=== PATIENT | female | born 1955 | race Caucasian/White ===

== ENCOUNTER 2021-06-23 08:54 | Outpatient (REF) | payer MEDICARE, MEDICAID, SELFPAY ==
--- NOTE | ~2021-06-23 | XR_ITS ---
EXAMINATION: XR KNEE STANDING, BILATERAL XR KNEE RIGHT, TWO VIEWS CLINICAL INFORMATION: Pain in right knee, M25.561. COMPARISON: 2018 TECHNIQUE: Bilateral standing, frontal and patella sunrise view right knee. FINDINGS: BONES: No fracture or dislocation is present. JOINTS: There is partial medial knee replacement prosthesis device, both femoral and tibial component of which is properly positioned maintaining normal alignment. No radiologic evidence of device loosening. Patella properly positioned. SOFT TISSUE: Normal XR/XR knee RT 2V IMPRESSION: Status post partial medial knee replacement. The prosthesis is stable properly positioned..
--- NOTE | ~2021-06-23 | XR_ITS ---
EXAMINATION: XR KNEE STANDING, BILATERAL XR KNEE RIGHT, TWO VIEWS CLINICAL INFORMATION: Pain in right knee, M25.561. COMPARISON: 2018 TECHNIQUE: Bilateral standing, frontal and patella sunrise view right knee. FINDINGS: BONES: No fracture or dislocation is present. JOINTS: There is partial medial knee replacement prosthesis device, both femoral and tibial component of which is properly positioned maintaining normal alignment. No radiologic evidence of device loosening. Patella properly positioned. SOFT TISSUE: Normal XR/XR knee standing BI IMPRESSION: Status post partial medial knee replacement. The prosthesis is stable properly positioned..
== END 2021-06-23 08:55 | disposition home or self-care (01) ==
LOC: HO.HOSX 08:54
PROVIDERS: Visit Provider Physician Assistant
DX: T84.84XA Pain due to internal orthopedic prosthetic devices, implants and grafts, initial encounter (principal); Z96.651 Presence of right artificial knee joint
CPT/HCPCS: 73560; 73565; 99202

== ENCOUNTER → 2021-09-01 13:35 | Outpatient (BNVA) | payer MEDICARE, MEDICAID, SELFPAY | PROVIDERS: PCP Internal Medicine; Visit Provider Orthopaedic Surgery | DX: Z01.818 Encounter for other preprocedural examination (principal); Z96.651 Presence of right artificial knee joint | CPT/HCPCS: 99212 ==

== ENCOUNTER 2021-09-06 06:05 | Inpatient (IN) | payer MEDICARE, MEDICAID, SELFPAY ==
--- NOTE | 2021-08-23 | ECG_ITS ---
Test Reason : preop Blood Pressure : / mmHG Vent. Rate : 078 BPM Atrial Rate : 078 BPM P-R Int : 162 ms QRS Dur : 090 ms QT Int : 368 ms P-R-T Axes : 072 054 086 degrees QTc Int : 419 ms Normal sinus rhythm Nonspecific T wave abnormality Abnormal ECG When compared with ECG of 08-FEB-2018 20:28, Nonspecific T wave abnormality, worse in Anterolateral leads Referred By: Saloni Álvarez Electronically Signed By:JAMIA CHOW MD
[2021-08-23 11:58] VITALS: BP 138/87; PULSE 84; RESP 20; O2SAT 96; BMI 33.5
--- NOTE | 2021-08-23 12:11 | HO.ANESPROP2 ---
Documented by User: Yari Nieves NP 09/05/21 12:26 HPI - Anesthesia Eval Consult details Narrative: 66yo F for Right Knee Total Revision PCP cleared s/p unicompartmental R TKA 2012 with spinal PMFSH Active Problems Active Problems: All Active Problems (Updated 08/23/21 @ 11:53 by Angeles Chilel RN) Status post unicompartmental knee replacement, right (Acute) Past Medical History Medical History (Updated 08/23/21 @ 12:10 by Angeles Chilel RN) COVID-19 vaccine series completed Elevated cholesterol GERD (gastroesophageal reflux disease) Hepatitis C HTN (hypertension) Hypothyroid TIA (transient ischemic attack) Family History Family history of problems with anesthesia: No Surgical History Surgical History (Updated 08/23/21 @ 11:53 by Angeles Chilel RN) H/O colonoscopy History of esophagogastroduodenoscopy (EGD) History of prosthetic unicompartmental arthroplasty of right knee History of total hip arthroplasty History of Problems with Anesthesia: No Social History Social History Are you a primary director medicare sales to a significant other at home: No Do you presently have visiting nurse or other home services: Yes (home health aid) Patient Tobacco Use Status: Former Tobacco user Quit Date: age 55 Tobacco use type: Cigarette Years Smoked: 35 Advance Directives Date on File: 04/18/16 Narrative Narrative: No recent illness No CP/SOB within limits of activity. Activity limited to pain. Meds Allergies Allergy/AdvReac Type Severity Reaction Status Date / Time oxycodone [From PERCOCET] Allergy Intermediate Itching Verified 09/06/21 06:15 aspirin [ASPIRIN] AdvReac Intermediate STOMACH Verified 09/06/21 06:15 IRRITATION Home Medications Medication Instructions Recorded Confirmed Last Taken Type diazepam 2 mg tablet 2 mg PO DAILY 06/23/21 08/23/21 Unknown History hydrochlorothiazide 12.5 mg tablet 12.5 mg PO DAILY 06/23/21 08/23/21 Unknown History levothyroxine 50 mcg tablet 50 mcg PO DAILY 06/23/21 08/23/21 09/06/21 05:00 History losartan 50 mg tablet 50 mg PO DAILY 06/23/21 08/23/21 Unknown History metoprolol succinate 25 mg 25 mg PO DAILY 06/23/21 08/23/21 09/06/21 05:00 History tablet,extended release 24 hr omeprazole 40 mg capsule,delayed 40 mg PO DAILY 06/23/21 08/23/21 09/06/21 05:00 History release pravastatin 80 mg tablet 80 mg PO DAILY 06/23/21 08/23/21 Unknown History trazodone 150 mg tablet 150 mg PO BEDTIME 06/23/21 08/23/21 Unknown History baclofen 5 mg tablet 5 mg PO TID PRN 08/31/21 08/31/21 Unknown History Exam Exam Date and Time: August 23, 2021 1211 Height,Weight and Vital Signs: Height 5 ft 2 in Weight 83.007 kg Last Vital Signs Pulse 84 08/23/21 11:58 Resp 20 08/23/21 11:58 BP 138/87 08/23/21 11:58 Pulse Ox 96 08/23/21 11:58 Pertinent Lab Results Pertinent Lab Results: Lab Results 08/23/21 08/23/21 08/23/21 Range/Units 12:10 13:00 13:00 WBC 3.8 L (4.8-10.8) X10*3/uL RBC 4.52 (4.20-5.50) X10*6/uL Hgb 13.1 (12.0-16.0) g/dl Hct 39.9 (37.0-47.0) % MCV 88.3 (80.0-98.0) fL MCH 29.0 (27.0-33.0) pg MCHC 32.8 (31.0-35.0) g/dl RDW 14.0 (11.0-16.0) % Plt Count 220 (160-400) X10*3/uL MPV 9.2 L (9.4-12.3) fL Immature Gran % (Auto) 0.3 (0.0-0.4) % Neut % (Auto) 43.1 L (45-73) % Lymph % (Auto) 44.6 H (20-40) % [place] % (Auto) 9.7 (2-11) % Eos % (Auto) 1.8 (0-4) % Baso % (Auto) 0.5 (0-2) % Lymph # (Auto) 1.7 (1.2-4.9) X10*3/uL [place] # (Auto) 0.4 (0.1-1.2) X10*3/uL Eos # (Auto) 0.1 (0.0-0.4) X10*3/uL Baso # (Auto) 0.0 (0.0-0.2) X10*3/uL Abs Immat Gran (auto) 0.01 (0.00-0.03) X10*3/uL Absolute Neuts (auto) 1.7 L (2.0-8.3) x10*3/uL Absolute Nucleated RBC 0.000 (0.0-0.012) X10*3/uL Nucleated RBC % (auto) 0.0 (0.0-0.2) /100WBC Sodium 138 (135-145) mmol/L Potassium 4.7 (3.3-5.1) mmol/L Chloride 103 (96-108) mmol/L Carbon Dioxide 29 (22-29) mmol/L Anion Gap 11 L (12-20) BUN 12 (9-16) mg/dL Creatinine 1.05 (0.5-1.4) mg/dL Estim Creat Clear Calc 51.2 Estimated GFR 52 Nasal Screen MRSA (PCR) NEGATIVE (Negative) Nasal S. aureus Screen POSITIVE A (Negative) Nasal MRSA/S.aureus Interp SEE NOTE Blood Type Antibody Screen 08/23/21 Range/Units 13:00 WBC (4.8-10.8) X10*3/uL RBC (4.20-5.50) X10*6/uL Hgb (12.0-16.0) g/dl Hct (37.0-47.0) % MCV (80.0-98.0) fL MCH (27.0-33.0) pg MCHC (31.0-35.0) g/dl RDW (11.0-16.0) % Plt Count (160-400) X10*3/uL MPV (9.4-12.3) fL Immature Gran % (Auto) (0.0-0.4) % Neut % (Auto) (45-73) % Lymph % (Auto) (20-40) % [place] % (Auto) (2-11) % Eos % (Auto) (0-4) % Baso % (Auto) (0-2) % Lymph # (Auto) (1.2-4.9) X10*3/uL [place] # (Auto) (0.1-1.2) X10*3/uL Eos # (Auto) (0.0-0.4) X10*3/uL Baso # (Auto) (0.0-0.2) X10*3/uL Abs Immat Gran (auto) (0.00-0.03) X10*3/uL Absolute Neuts (auto) (2.0-8.3) x10*3/uL Absolute Nucleated RBC (0.0-0.012) X10*3/uL Nucleated RBC % (auto) (0.0-0.2) /100WBC Sodium (135-145) mmol/L Potassium (3.3-5.1) mmol/L Chloride (96-108) mmol/L Carbon Dioxide (22-29) mmol/L Anion Gap (12-20) BUN (9-16) mg/dL Creatinine (0.5-1.4) mg/dL Estim Creat Clear Calc Estimated GFR Nasal Screen MRSA (PCR) (Negative) Nasal S. aureus Screen (Negative) Nasal MRSA/S.aureus Interp Blood Type A Positive Antibody Screen NEGATIVE Narrative Narrative: EKG 08/2021 Vent. Rate : 078 BPM ? ? Atrial Rate : 078 BPM ?? P-R Int : 162 ms? QRS Dur : 090 ms ? ? QT Int : 368 ms ? ? ? P-R-T Axes : 072 054 086 degrees ?? QTc Int : 419 ms ? Normal sinus rhythm Nonspecific T wave abnormality Abnormal ECG When compared with ECG of 08-FEB-2018 20:28, Nonspecific T wave abnormality, worse in Anterolateral leads Airway Mallampati Class: I TM Dist: >3cm Neck ROM: Limited (D/t OA) Partial: Lower Heart: RRR Lungs: CTAB Assessment and Plan Assessment Anesthesia Assessment: Anesthesia Plan Discussed and PAT Visit Final Anesthetic Review Family History of Problems with Anesthesia: No History of Problems with Anesthesia: No Documented by User: Cristobal Helm MD 09/06/21 18:33 HPI - Anesthesia Eval Consult details Narrative: 66yo F for Right Knee Total Revision PCP cleared s/p unicompartmental R TKA 2012 with spinal H/O CVA vs TIA PMFSH Past Medical History Medical History (Updated 08/23/21 @ 12:10 by Angeles Chilel RN) COVID-19 vaccine series completed Elevated cholesterol GERD (gastroesophageal reflux disease) Hepatitis C HTN (hypertension) Hypothyroid TIA (transient ischemic attack) Surgical History Surgical History (Updated 08/23/21 @ 11:53 by Angeles Chilel RN) H/O colonoscopy History of esophagogastroduodenoscopy (EGD) History of prosthetic unicompartmental arthroplasty of right knee History of total hip arthroplasty Social History Social History Are you a primary director medicare sales to a significant other at home: No Do you presently have visiting nurse or other home services: Yes (home health aid) Patient Tobacco Use Status: Former Tobacco user Quit Date: age 55 Tobacco use type: Cigarette Years Smoked: 35 Advance Directives Date on File: 04/18/16 Meds Allergies Allergy/AdvReac Type Severity Reaction Status Date / Time oxycodone [From PERCOCET] Allergy Intermediate Itching Verified 09/06/21 06:15 aspirin [ASPIRIN] AdvReac Intermediate STOMACH Verified 09/06/21 06:15 IRRITATION Home Medications Medication Instructions Recorded Confirmed Last Taken Type diazepam 2 mg tablet 2 mg PO DAILY 06/23/21 08/23/21 Unknown History hydrochlorothiazide 12.5 mg tablet 12.5 mg PO DAILY 06/23/21 08/23/21 Unknown History levothyroxine 50 mcg tablet 50 mcg PO DAILY 06/23/21 08/23/21 09/06/21 05:00 History losartan 50 mg tablet 50 mg PO DAILY 06/23/21 08/23/21 Unknown History metoprolol succinate 25 mg 25 mg PO DAILY 06/23/21 08/23/21 09/06/21 05:00 History tablet,extended release 24 hr omeprazole 40 mg capsule,delayed 40 mg PO DAILY 06/23/21 08/23/21 09/06/21 05:00 History release pravastatin 80 mg tablet 80 mg PO DAILY 06/23/21 08/23/21 Unknown History trazodone 150 mg tablet 150 mg PO BEDTIME 06/23/21 08/23/21 Unknown History baclofen 5 mg tablet 5 mg PO TID PRN 08/31/21 08/31/21 Unknown History Exam Airway Loose/Missing/Broken Teeth: Yes (Chipped teeth ) Assessment and Plan Assessment Anesthesia Assessment: Chart Reviewed Final Anesthetic Review NPO: Yes ASA Class: III Final Preanesthetic Review: Meds/Allgs Chart Reviewed, Consent Obtained/Reviewed and Anes Risks/Benef Reviewed Patient Risk: Intermediate Procedure Risk: Intermediate Anesthetic Plan Anesthetic Plan: Spinal and Regional Block Disposition: Inp. Admit - Standard Bed
[2021-08-23 13:02] LABS: MANUAL DIFF FLAG NO
[2021-08-23 13:25] LABS: Basophils Percent Auto 0.5 % (0-2); Eosinophils Absolute Auto 0.1 X10*3/uL (0.0-0.4); Eosinophils Percent Auto 1.8 % (0-4); Hematocrit 39.9 % (37.0-47.0); Hemoglobin 13.1 g/dl (12.0-16.0); Imm Gran Abs Auto 0.01 X10*3/uL (0.00-0.03); Imm Gran Pct Auto 0.3 % (0.0-0.4); Lymphocytes Absolute Auto 1.7 X10*3/uL (1.2-4.9); Lymphocytes Percent Auto 44.6 % (20-40); Mean Corpuscular HGB Conc 32.8 g/dl (31.0-35.0); Mean Corpuscular Volume 88.3 fL (80.0-98.0); Mean Platelet Volume 9.2 fL (9.4-12.3); Monocytes Absolute Auto 0.4 X10*3/uL (0.1-1.2); Monocytes Percent Auto 9.7 % (2-11); Neutrophils Absolute Auto 1.7 x10*3/uL (2.0-8.3); Neutrophils Percent Auto 43.1 % (45-73); Platelet Count 220 X10*3/uL (160-400); Red Blood Count 4.52 X10*6/uL (4.20-5.50); White Blood Count 3.8 X10*3/uL (4.8-10.8)
[2021-08-23 13:31] LABS: Anion Gap 11 (12-20); Blood Urea Nitrogen 12 mg/dL (9-16); Carbon Dioxide 29 mmol/L (22-29); Chloride 103 mmol/L (96-108); Creatinine Clr Calc Pharmacy 51.2; Estimated Glomerular Filt Rate 52; Potassium 4.7 mmol/L (3.3-5.1); Sodium 138 mmol/L (135-145)
[2021-08-23 14:03] LABS: MRSA Nasal PCR NEGATIVE (Negative); SA Nasal PCR POSITIVE (Negative)
[2021-09-06] VITALS (29 sets, daily range): BP systolic 99–174; BP diastolic 54–96; PULSE 76–96; RESP 16–20; TEMP 36.3–36.8; O2SAT 94–98
--- NOTE | ~2021-09-06 | XR_ITS ---
EXAMINATION: XR KNEE, RIGHT CLINICAL INFORMATION: Right knee replacement COMPARISON: Previous x-ray June 2021 TECHNIQUE: Two views of the right knee. FINDINGS: There is a new 3 component right knee replacement in satisfactory position. No fracture or dislocation is seen there are postoperative changes to the soft tissues. There are soft tissue calcifications or ossifications adjacent to the medial knee joint that are stable. XR/XR knee RT 2V IMPRESSION: Satisfactory appearance of right knee replacement.
[2021-09-06 06:59] LABS: Hematocrit 37.3 % (37.0-47.0); Hemoglobin 12.1 g/dl (12.0-16.0)
[2021-09-06] MEDS: Lactated Ringers 1,000 ML 100 ML IVCONT ×3 (07:06→19:47)
[2021-09-06 07:26] LABS: COVID-19 Test Negative (Negative)
--- NOTE | 2021-09-06 07:34 | PHA.MEDREC ---
Pharmacy Consult ? Medication Reconciliation Pharmacy has reviewed the medication reconciliation.
--- NOTE | 2021-09-06 08:01 | MHC.SHP ---
Pre-Procedural Eval Section A Date of Service: 09/06/21 The patient is an INPATIENT: No Changes since office visit: Yes Patient answered all questions; No Cold of Flu in the past 2 weeks, No New Medical Problems and No Changes in Medication The History & Physical has been completed within 30 days and I have reviewed it.: Yes Section B Chief Complaint: RT TKA Allergies: Allergies Allergy/AdvReac Type Severity Reaction Status Date / Time oxycodone [From PERCOCET] Allergy Intermediate Itching Verified 09/06/21 06:15 aspirin [ASPIRIN] AdvReac Intermediate STOMACH Verified 09/06/21 06:15 IRRITATION Plan I have reviewed the history and physical and performed a pertinent physical examination on my patient. No changes have occurred unless specified.
--- NOTE | 2021-09-06 10:23 | PM.OP ---
Brief Operative Note Date of Service: 09/06/21 Pre-op diagnosis: right knee s/p UKA Post-op diagnosis: same Procedure: Revision right knee arthroplasty Implants: Ramsey triathalon posterior stabilized cemented 05/26/18 Surgeon: Zack Kumar MD Anesthesia: regional and spinal Was an Professor Of Anthropology used for this Procedure?: Yes Professor Of Anthropology: Saloni Álvarez Estimated blood loss (mL): 150 IV fluids (mL): 1,000 Pathology: none sent Condition: stable Disposition: PACU
--- NOTE | 2021-09-06 10:28 | W.PM.OPN ---
Operative Note Operative Note Date of Service: 09/06/21 Narrative: Date of Service: 09/06/21 Pre-op diagnosis: right knee s/p UKA Post-op diagnosis: same Procedure: Revision right knee arthroplasty Implants: Ramsey triathalon posterior stabilized cemented 05/26/18 Surgeon: Zack Kumar MD Anesthesia: regional and spinal Was an Periodicals Library Assistant used for this Procedure?: Yes Periodicals Library Assistant: Saloni Álvarez Estimated blood loss (mL): 150 IV fluids (mL): 1,000 Pathology: none sent Condition: stable Disposition: PACU Procedure in detail: The patient was brought to the operating room and prepped and draped in standard sterile fashion. A time-out was called to identify proper site proper procedure proper surgeon and IV antibiotics were administered. 1 g of IV tranexamic acid was administered. I began by making a midline incision to the retinaculum and performed a medial parapatellar arthrotomy. The patella was translated laterally and the knee was flexed up. There was moderate medial PF wear and lateral femoral condyle wear. The UKA was intact wtihout evidence of loosening. I performed a small medial peel and resected the infrapatellar fat pad. Linh's line was then used to drill my intramedullary femoral guide and my distal femur cut of 12 mm was made in 5 degrees of valgus with the prosthesis in place. I made my lateral femoral cut and my medial femoral cut around the prosthesis. I then removed the cutting guide and used a flexible osteotome to slowly and circumferentially remove the femoral component with minimal bone loss. I then irrigated, removed excess cement and placed my emoral cutting jig in 3 deg or ER and, using the epicondylar axis as my reference measured a 2 femur and made my anterior, posterior and chamfer cuts while protecting the soft tissues. I then made my box but removing the PCL. Once I was satisfied with my cuts I turned my attention to the tibia. I removed the meniscus laterally and , using an external cutting guide, in line with the tibial crest and the third ray, I made my distal tibial cut in 0 deg slope of while protecting the posterior soft tissues at all times. The medial tibial prosthesis was again kept in situ during my initial cut. One I made my lateral cut and a serioes of perimeter cuts under the prosthesis I used a flexible osteotome to remove the prosthesis slowly and carefully. Again there was minimal bone loss. I then made an additional 2 mm clean up cut. I then sized a #3 tibia and once I was satisfied that there was complete tibial coverage I placed my trial and with the trial femur in place took the knee through range of motion. I was satisfied with the extension and flexion as well as the stability at 0, 30 and 90 degrees using a 19 mm insert. I then turned my attention to the patella where I removed 1 cm from the undersurface of the patella and then trialed a 32a patellar button. Again the knee was taken through range of motion I was satisfied with the tracking. I then returned to the femur and drilled my femoral lug holes and prepared the tibia. A femoral bone plug was placed and the knee was irrigated copiously. I then press fit the patella, tibia and femur in standard fashion. I trialed different inserts until I selected a #19 insert. The final insert was placed and a 3 minutes iodine soak with local TXA was performed. A Werewolf cautery wand was used to maintain hemostasis over the capsule and meniscal beds, the gutters and peripatellar soft tissues. The knee was then closed with a running Quill suture, a 3 0 Vicryl and mendel on the skin. Patient was then placed in sterile dressing and brought to recovery room in stable condition there were no known complications.
[2021-09-06] MEDS: HYDROmorphone HCl 0.5 MG/0.5 ML SYRINGE 0.25 MG IVPUSH ×7 (13:45→23:30)
[2021-09-06] MEDS: ceFAZolin Sodium/Dextrose,Iso 2 GM/50 ML PIGGYBACK IV (13:51)
[2021-09-06] MEDS: Acetaminophen 325 MG TABLET 650 MG PO (14:58)
[2021-09-06] MEDS: oxyCODONE HCl ER 10 MG TAB.ER.12H PO (19:42)
[2021-09-06] MEDS: Celecoxib 200 MG CAPSULE PO (19:42)
[2021-09-06] MEDS: Docusate Sodium 100 MG CAPSULE PO (19:42)
[2021-09-06] MEDS: traZODone HCL 50 MG TABLET 150 MG PO (19:42)
[2021-09-07] VITALS (10 sets, daily range): BP systolic 133–160; BP diastolic 61–80; PULSE 86–97; RESP 18–20; TEMP 36.1–36.9; O2SAT 94–96; BMI 33.8
[2021-09-07] MEDS: oxyCODONE HCl Immed Release 5 MG TABLET 10 MG PO (01:32)
[2021-09-07] MEDS: Acetaminophen 325 MG TABLET 650 MG PO (01:33)
[2021-09-07] MEDS: ondansetron HCL 4 MG/2 ML VIAL IVPUSH (04:48)
[2021-09-07] MEDS: Lactated Ringers 1,000 ML 100 ML IVCONT ×2 (04:49→21:00)
[2021-09-07] MEDS: Omeprazole 40 MG CAPSULE.DR PO (05:48)
[2021-09-07] MEDS: Levothyroxine Sodium 50 MCG TABLET PO (05:48)
[2021-09-07 06:19] LABS: MANUAL DIFF FLAG NO
[2021-09-07 06:36] LABS: Basophils Percent Auto 0.2 % (0-2); Eosinophils Percent Auto 0.4 % (0-4); Hematocrit 32.4 % (37.0-47.0); Imm Gran Abs Auto 0.01 X10*3/uL (0.00-0.03); Imm Gran Pct Auto 0.2 % (0.0-0.4); Lymphocytes Absolute Auto 1.1 X10*3/uL (1.2-4.9); Lymphocytes Percent Auto 23.1 % (20-40); Mean Corpuscular Hemoglobin 29.4 pg (27.0-33.0); Mean Corpuscular Volume 86.6 fL (80.0-98.0); Mean Platelet Volume 9.9 fL (9.4-12.3); Monocytes Absolute Auto 0.6 X10*3/uL (0.1-1.2); Monocytes Percent Auto 12.5 % (2-11); Neutrophils Absolute Auto 3.1 x10*3/uL (2.0-8.3); Neutrophils Percent Auto 63.6 % (45-73); Platelet Count 196 X10*3/uL (160-400); Red Blood Count 3.74 X10*6/uL (4.20-5.50); Red Cell Distribution Width 13.6 % (11.0-16.0); White Blood Count 4.8 X10*3/uL (4.8-10.8)
[2021-09-07 06:49] LABS: Anion Gap 7 (12-20); Blood Urea Nitrogen 9 mg/dL (9-16); Calcium 8.9 mg/dL (8.4-10.2); Carbon Dioxide 29 mmol/L (22-29); Chloride 101 mmol/L (96-108); Creatinine Clr Calc Pharmacy 74.1; Estimated Glomerular Filt Rate > 60; Glucose Fasting 152 mg/dL (60-99); Potassium 3.8 mmol/L (3.3-5.1); Sodium 133 mmol/L (135-145)
--- NOTE | 2021-09-07 07:29 | P.PNOP_ITS ---
Subjective Subjective Date of Service: 09/07/21 Interval history: POD1 s/p RTKA. Patient resting in bed comfortably. No overnight events. Reports some dizziness. Pain is managed. No additional complaints. Physical Exam Vital Signs: Vital Signs: Last Vital Signs Temp 98.4 F 09/07/21 07:14 Pulse 92 09/07/21 07:14 Resp 20 09/07/21 07:14 BP 149/73 H 09/07/21 07:14 Pulse Ox 95 09/07/21 07:14 BMI result Body Mass Index 33.8 Const: General: cooperative, healthy appearing and no acute distress Resp: Effort & Inspection: normal respiratory effort and able to speak in complete sentences Cardio: Rate: regular rate Peripheral pulses: Peripheral pulses 2+ through out GI: Palpation (GI): Soft to palpation Skin: Lesions: no lesions Rashes: no rashes Extrem: Other: Right knee Aquacel is clean, dry, and intact. NVI. Procedures Date of Service Date of Service: 09/07/21 Progress Note: A&P Assessment and plan (1) Status post unicompartmental knee replacement, right: Status: Acute Plan Continue pain mgmnt Begin ASA for dvt ppx begin PT for RTKA Dispo planning-Pending PT eval, pain mgmnt Time Spent With Patient Time: Total time spent is greater than 50% in coordination of care (as documented) at patient's floor/unit and/or counseling patient: Quality Stroke Does the patient have a stroke diagnosis?: No VTE Prior VTE?: No VTE Risk Level:: Surgical - very high VTE Device Contraindication: N/A - Device Ordered VTE Drug Contraindication: N/A - Med Ordered
[2021-09-07] MEDS: Celecoxib 200 MG CAPSULE PO ×2 (08:31→20:15)
[2021-09-07] MEDS: diazePAM 2 MG TABLET PO (08:31)
[2021-09-07] MEDS: Aspirin 325 MG TABLET PO ×2 (08:31→20:15)
[2021-09-07] MEDS: Docusate Sodium 100 MG CAPSULE PO ×2 (08:31→20:22)
[2021-09-07] MEDS: Metoprolol Succinate ER 25 MG TAB.ER.24H PO (08:31)
--- NOTE | 2021-09-07 08:42 | HO.PM.IMCN ---
History of Present Illness Data of Consult Service Date: 09/07/21 Requesting physician: Zack Kumar Primary Care Provider: Dennis Bland MD HPI 66-year-old woman with history hypertension, GERD, hyperlipidemia, hypothyroidism admitted by Orthopedic surgery and is status post revision of right knee arthroplasty. At this time she is complaining of a moderate amount of pain and reported that she did not sleep very well last night. She is hemodynamically stable. Labs within acceptable limits. Currently resting in bed with some relief of pain after recently being medicated. Review of Systems Review of Systems: Denies any recent fever chills or decrease in appetite respiratory denies any shortness of breath coverage production cardiovascular Denies chest pain gastrointestinal denies any dysphagia abdominal pain nausea vomiting or diarrhea genitourinary denies any dysuria frequency or hematuria musculoskeletal denies any joint pain or swelling neuropsych see HPI all other systems reviewed are negative FOR[facility]LY [facility] Medical History COVID-19 vaccine series completed Elevated cholesterol GERD (gastroesophageal reflux disease) Hepatitis C HTN (hypertension) Hypothyroid TIA (transient ischemic attack) Pertinent family history: no cardiac disease Surgical History H/O colonoscopy History of esophagogastroduodenoscopy (EGD) History of prosthetic unicompartmental arthroplasty of right knee History of total hip arthroplasty Social History Are you a primary team primary care physician to a significant other at home: No Do you presently have visiting nurse or other home services: Yes (home health aid) Patient Tobacco Use Status: Former Tobacco user Quit Date: age 55 Tobacco use type: Cigarette Years Smoked: 35 Advance Directives Date on File: 04/18/16 Meds Allergies Allergy/AdvReac Type Severity Reaction Status Date / Time oxycodone [From PERCOCET] Allergy Intermediate Itching Verified 09/06/21 06:15 aspirin [ASPIRIN] AdvReac Intermediate STOMACH Verified 09/06/21 06:15 IRRITATION Active Medications: Current Medications Acetaminophen (Acetaminophen 325 Mg Tablet) 650 mg PO Q6H PRN PRN Reason: Pain, Mild (Pain Scale 1-3) Last Admin: 09/07/21 01:33 Dose: 650 mg Documented by: Aspirin (Aspirin 325 Mg Tablet) 325 mg PO BID RENE Last Admin: 09/07/21 08:31 Dose: 325 mg Documented by: Baclofen (Baclofen 10 Mg Tablet) 5 mg PO TID PRN PRN Reason: Headache Celecoxib (Celecoxib 200 Mg Capsule) 200 mg PO BID [facility] Last Admin: 09/07/21 08:31 Dose: 200 mg Documented by: Diazepam (Diazepam 2 Mg Tablet) 2 mg PO DAILY [facility] Last Admin: 09/07/21 08:31 Dose: 2 mg Documented by: Docusate Sodium (Docusate Sodium 100 Mg Capsule) 100 mg PO BID [facility] Last Admin: 09/07/21 08:31 Dose: 100 mg Documented by: Fentanyl (Fentanyl Citrate/Pf 100 Mcg/2 Ml Vial) 25 mcg IVPUSH Q5M PRN; Protocol PRN Reason: Pain, Moderate (Pain Scale 4-6 Hydromorphone HCl (Hydromorphone Hcl 0.5 Mg/0.5 Ml Syringe) 0.25 mg IVPUSH Q4H PRN; Protocol PRN Reason: Pain, Severe (Pain Scale 7-10) Last Admin: 09/06/21 23:30 Dose: 0.25 mg Documented by: Promethazine HCl 6.25 mg/ (Sodium Chloride) 50.25 mls @ 201 mls/hr IV ONCE PRN PRN Reason: Nausea and Vomiting Lactated Ringer's (Lr) 1,000 mls @ 100 mls/hr IVCONT .Q10H [facility] Last Admin: 09/07/21 04:49 Dose: 100 mls/hr Documented by: Cefazolin Sodium/Dextrose (Ancef) 2 gm in 50 mls @ 100 mls/hr IV POSTOP [facility] Last Infusion: 09/06/21 17:40 Dose: Infused Documented by: Levothyroxine Sodium (Levothyroxine Sodium 50 Mcg Tablet) 50 mcg PO DAILY@0600 [facility] Last Admin: 09/07/21 05:48 Dose: 50 mcg Documented by: Metoprolol Succinate (Metoprolol Succinate Er 25 Mg Tab.Er.24h) 25 mg PO DAILY [facility]; Protocol Last Admin: 09/07/21 08:31 Dose: 25 mg Documented by: Omeprazole (Omeprazole 40 Mg Capsule.Dr) 40 mg PO DAILY@0630 [facility] Last Admin: 09/07/21 05:48 Dose: 40 mg Documented by: Ondansetron HCl (Ondansetron Hcl 4 Mg/2 Ml Vial) 4 mg IVPUSH Q8H PRN PRN Reason: Nausea and Vomiting Last Admin: 09/07/21 04:48 Dose: 4 mg Documented by: Oxycodone HCl (Oxycodone Hcl Immed Release 5 Mg Tablet) 10 mg PO Q4H PRN PRN Reason: Pain, Moderate (Pain Scale 4-6 Last Admin: 09/07/21 01:32 Dose: 10 mg Documented by: Oxycodone HCl (Oxycodone Hcl Er 10 Mg Tab.Er.12h) 10 mg PO BID [facility] Last Admin: 09/06/21 19:42 Dose: 10 mg Documented by: Sodium Chloride (0.9 % Sodium Chloride Flush 3 Ml Syringe) 3 ml IVFLUSH QSHIFT [facility] Last Admin: 09/07/21 08:30 Dose: Not Given Documented by: Trazodone HCl (Trazodone Hcl 50 Mg Tablet) 150 mg PO BEDTIME [facility] Last Admin: 09/06/21 19:42 Dose: 150 mg Documented by: Home Medications Medication Instructions Recorded Confirmed Last Taken Type diazepam 2 mg tablet 2 mg PO DAILY 06/23/21 08/23/21 Unknown History hydrochlorothiazide 12.5 mg tablet 12.5 mg PO DAILY 06/23/21 08/23/21 Unknown History levothyroxine 50 mcg tablet 50 mcg PO DAILY 06/23/21 08/23/21 09/06/21 05:00 History losartan 50 mg tablet 50 mg PO DAILY 06/23/21 08/23/21 Unknown History metoprolol succinate 25 mg 25 mg PO DAILY 06/23/21 08/23/21 09/06/21 05:00 History tablet,extended release 24 hr omeprazole 40 mg capsule,delayed 40 mg PO DAILY 06/23/21 08/23/21 09/06/21 05:00 History release pravastatin 80 mg tablet 80 mg PO DAILY 06/23/21 08/23/21 Unknown History trazodone 150 mg tablet 150 mg PO BEDTIME 06/23/21 08/23/21 Unknown History baclofen 5 mg tablet 5 mg PO TID PRN 08/31/21 08/31/21 Unknown History Physical Exam Vital Signs and Narrative: Vital Signs: Last Vital Signs Temp 98.4 F 09/07/21 07:14 Pulse 92 09/07/21 07:50 Resp 20 09/07/21 07:14 BP 149/73 H 09/07/21 07:50 Pulse Ox 95 09/07/21 07:50 BMI result Body Mass Index 33.8 Appearing in no acute distress head is normocephalic atraumatic eyes pupils are PERRLA sclera is anicteric mouth throat mucous membranes are intact and moist neck is supple no lymphadenopathy, no JVD noted lung sounds are clear to auscultation heart regular rate rhythm, clear S1, S2 positive bowel sounds, abdomen is soft, nontender neuro patient is alert x3, no focal deficits Right knee with surgical dressing, surgical incision wound not visualized Results Labs CBC and Chem 7: 09/07/21 05:41 09/07/21 05:41 Labs: Laboratory Results - last 24 hr 09/07/21 09/07/21 05:41 05:41 MCV 86.6 MCH 29.4 MCHC 34.0 RDW 13.6 Plt Count 196 MPV 9.9 Immature Gran % (Auto) 0.2 Neut % (Auto) 63.6 Lymph % (Auto) 23.1 [place] % (Auto) 12.5 H Eos % (Auto) 0.4 Baso % (Auto) 0.2 Lymph # (Auto) 1.1 L [place] # (Auto) 0.6 Eos # (Auto) 0.0 Baso # (Auto) 0.0 Abs Immat Gran (auto) 0.01 Absolute Neuts (auto) 3.1 Absolute Nucleated RBC 0.000 Nucleated RBC % (auto) 0.0 Anion Gap 7 L Estim Creat Clear Calc 74.1 Estimated GFR > 60 Fasting Glucose 152 H Calcium 8.9 Imaging Radiologist's Impressions: Impressions Knee X-Ray 09/06/21 11:26 IMPRESSION: Satisfactory appearance of right knee replacement. Assessment and Plan (1) Status post unicompartmental knee replacement, right: Status: Acute Plan 66-year-old woman admitted by Orthopedic surgery and is status post revision of right total knee arthroplasty Right total knee arthroplasty Management as per surgical team Pain management Hypertension Stable blood pressure Continue metoprolol GERD Continue PPI Hypothyroidism Continue levothyroxine Mental health Continue home medications DVT prophylaxis with full-dose aspirin as per surgical team attending Dr. Vergara Full code
--- NOTE | 2021-09-07 10:18 | MHC.CM.PN ---
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 D/C PLAN: STR W/[facility] FOR BLS TRANSPORT
[2021-09-07] MEDS: HYDROmorphone HCl 0.5 MG/0.5 ML SYRINGE 0.25 MG IVPUSH (13:39)
--- NOTE | 2021-09-07 14:11 | HO.POSTANES ---
Post Anesthesia Evaluation Post Anesthesia Evaluation Vital Signs: Vital Signs Temp Pulse Resp BP Pulse Ox 09/07/21 11:42 97.6 F 87 20 140/78 H 94 09/07/21 11:24 94 09/07/21 11:07 92 149/73 H 95 09/07/21 07:50 92 149/73 H 95 09/07/21 07:14 98.4 F 92 20 149/73 H 95 09/07/21 03:52 97.0 F 97 18 133/74 96 Anesthesia: Spinal and Nerve Block Mental Status: Awake Pain Control: Satisfactory Nausea/Vomiting: None Hydration: Adequate Anesthesia-Related Issues: No Anes. Related Issues
[2021-09-07] MEDS: oxyCODONE HCl ER 10 MG TAB.ER.12H PO (20:15)
[2021-09-07] MEDS: traZODone HCL 50 MG TABLET 150 MG PO (20:15)
[2021-09-07] MEDS: 0.9 % Sodium Chloride Flush 3 ML SYRINGE IVFLUSH (20:18)
[2021-09-08 03:43] VITALS: BP 158/70; PULSE 88; RESP 20; TEMP 36.4; O2SAT 93
[2021-09-08] MEDS: Levothyroxine Sodium 50 MCG TABLET PO (04:50)
[2021-09-08] MEDS: Lactated Ringers 1,000 ML 100 ML IVCONT (04:50)
[2021-09-08] MEDS: Omeprazole 40 MG CAPSULE.DR PO (04:50)
[2021-09-08 06:49] LABS: MANUAL DIFF FLAG NO
[2021-09-08 07:17] LABS: Basophils Percent Auto 0.2 % (0-2); Eosinophils Absolute Auto 0.1 X10*3/uL (0.0-0.4); Eosinophils Percent Auto 1.4 % (0-4); Hematocrit 29.3 % (37.0-47.0); Hemoglobin 9.7 g/dl (12.0-16.0); Imm Gran Abs Auto 0.02 X10*3/uL (0.00-0.03); Imm Gran Pct Auto 0.4 % (0.0-0.4); Lymphocytes Absolute Auto 1.6 X10*3/uL (1.2-4.9); Lymphocytes Percent Auto 31.7 % (20-40); Mean Corpuscular HGB Conc 33.1 g/dl (31.0-35.0); Mean Corpuscular Volume 87.7 fL (80.0-98.0); Mean Platelet Volume 10.3 fL (9.4-12.3); Monocytes Absolute Auto 0.7 X10*3/uL (0.1-1.2); Monocytes Percent Auto 14.6 % (2-11); Neutrophils Absolute Auto 2.6 x10*3/uL (2.0-8.3); Neutrophils Percent Auto 51.7 % (45-73); Platelet Count 196 X10*3/uL (160-400); Red Blood Count 3.34 X10*6/uL (4.20-5.50)
[2021-09-08 07:22] LABS: Anion Gap 5 (12-20); Blood Urea Nitrogen 10 mg/dL (9-16); Calcium 8.9 mg/dL (8.4-10.2); Carbon Dioxide 30 mmol/L (22-29); Chloride 107 mmol/L (96-108); Creatinine Clr Calc Pharmacy 72.1; Estimated Glomerular Filt Rate > 60; Glucose Fasting 128 mg/dL (60-99); Potassium 3.9 mmol/L (3.3-5.1); Sodium 138 mmol/L (135-145)
[2021-09-08 07:58] VITALS: BP 139/68; PULSE 86; RESP 17; TEMP 36; O2SAT 94
[2021-09-08 10:01] VITALS: BP 139/68; PULSE 86; O2SAT 94
[2021-09-08] MEDS: Celecoxib 200 MG CAPSULE PO (10:04)
[2021-09-08] MEDS: diazePAM 2 MG TABLET PO (10:05)
[2021-09-08] MEDS: oxyCODONE HCl ER 10 MG TAB.ER.12H PO (10:05)
[2021-09-08] MEDS: Docusate Sodium 100 MG CAPSULE PO (10:05)
[2021-09-08] MEDS: Metoprolol Succinate ER 25 MG TAB.ER.24H PO (10:05)
[2021-09-08] MEDS: Aspirin 325 MG TABLET PO (10:05)
[2021-09-08] MEDS: 0.9 % Sodium Chloride Flush 3 ML SYRINGE IVFLUSH (10:06)
[2021-09-08 11:00] VITALS: O2SAT 96
[2021-09-08 11:26] VITALS: BP 127/71; PULSE 65; RESP 17; TEMP 36.2; O2SAT 94
--- NOTE | 2021-09-08 12:37 | MHC.CM.PN ---
NURSE TUBING OILER NOTE ELECTRONIC MEDICAL RECORD REVIEWED ALONG WITH CASE DISCUSSED WITH STAFF NURSE AND THE HOSPITALIST AND ORTHOPEDIC SURGEON. MET WITH PATIENT SHE IS AWARE THAT SH WILL BE DISCHARGED TODAY CLINICALLY ACCEPTED AT [facility] AND CONFIRMED INSURANCE AUTHORIZATION RECEIVED, COMPLETED A NEW HEALTH CARE PROXY TODAY NAMING HER HER gent . original and four copies given to her . discharge plan to short term rehab at [facility] and to be transported via [facility] per pt note and staff input. medicare imm 09/07/21
--- NOTE | 2021-09-08 13:51 | P.DS_ITS ---
DS: Providers Provider Date of Service: 09/08/21 Date of admission: 09/06/21 06:05 Primary care physician: Dennis Bland MD Consults: 09/06/21 16:54 Consult to Hospitalist Routine Consulting Provider: Hospitalist Reason For Exam: htn DS: Diagnosis Discharge Diagnosis (1) Status post unicompartmental knee replacement, right: Status: Acute DS: Summary Hospital Course Hospital Course: The patient underwent a successful Revision right total knee arthroplasty, was transferred to PACU and then to the floor to recover. During their stay, their vitals were stable, afebrile at 97.5. Labs were unremarkable, H/H 97./29.3 . POD 1 she was started on ASA for DVT ppx, they also received services twice a day. Prior to discharge, their dressing was change, incision clean dry and intact, new Aquacel dressing applied and the plan was to be discharged to STR Time Spent with Patient Time attestation: Total time spent providing and/or coordinating discharge services: Discharge coordination time: Less than 30 minutes Quality: Safe Use of Opioids Does Pt have an Active Cancer Diagnosis on the Problem List?: No Quality: Stroke Does the patient have a stroke diagnosis?: No Physical Exam Vital Signs: Vital Signs: Last Vital Signs Temp 97.2 F 09/08/21 11:26 Pulse 65 09/08/21 11:26 Resp 17 09/08/21 11:26 BP 127/71 09/08/21 11:26 Pulse Ox 94 09/08/21 11:26 BMI result Body Mass Index 33.8 Const: General: cooperative, healthy appearing and no acute distress Resp: Effort & Inspection: normal respiratory effort and able to speak in complete sentences Cardio: Rate: regular rate Peripheral pulses: Peripheral pulses 2+ throughout GI: Palpation (GI): Soft to palpation Skin: General skin exam: no rashes or lesions noted Extrem: Other: incision clean dry and intact. Gray intact. No erythema or joint effusion. Calf supple nontender. Neurovascularly intact. DS: Data Data Completed and Pending Pending studies at discharge: Pending at discharge 09/06/21 10:10 Surgical [PTH] Routine Labs on day of discharge: Laboratory Results - last 24 hr 09/08/21 09/08/21 06:18 06:18 WBC 5.0 RBC 3.34 L Hgb 9.7 L Hct 29.3 L MCV 87.7 MCH 29.0 MCHC 33.1 RDW 14.0 Plt Count 196 MPV 10.3 Immature Gran % (Auto) 0.4 Neut % (Auto) 51.7 Lymph % (Auto) 31.7 [place] % (Auto) 14.6 H Eos % (Auto) 1.4 Baso % (Auto) 0.2 Lymph # (Auto) 1.6 [place] # (Auto) 0.7 Eos # (Auto) 0.1 Baso # (Auto) 0.0 Abs Immat Gran (auto) 0.02 Absolute Neuts (auto) 2.6 Absolute Nucleated RBC 0.000 Nucleated RBC % (auto) 0.0 Sodium 138 Potassium 3.9 Chloride 107 Carbon Dioxide 30 H Anion Gap 5 L BUN 10 Creatinine 0.75 Estim Creat Clear Calc 72.1 Estimated GFR > 60 Fasting Glucose 128 H Calcium 8.9 Discharge Plan Discharge Patient Disposition: Xfer SNF Discharge Diagnosis: RT TKA Referrals: [facility] term [facility]hab [Other] - 1 Day ([facility] term rehab TRANSPORTATION [facility]IA [facility] ) Saloni Álvarez PA-C [Physician Director Content Marketing] - 2 Weeks (09/22/21 1:00 [facility] Orthopedic Surgeons Saloni Álvarez PA-C) Discharge Medications: New oxycodone 10 mg tablet 10 mg PO Q4H PRN (Reason: Pain, Moderate (Pain Scale 4-6) 7 Days Qty: 42 0RF acetaminophen 325 mg Tablet 650 mg PO Q6H PRN (Reason: Pain, Mild (Pain Scale 1-3)) 30 Days Qty: 240 0RF aspirin 325 mg Tablet 325 mg PO BID 42 Days Qty: 84 0RF docusate sodium 100 mg Capsule 100 mg PO BID 14 Days Qty: 28 0RF Continued baclofen 5 mg Tablet 5 mg PO TID PRN (Reason: Headache) 0RF omeprazole 40 mg capsule,delayed release(DR/EC) 40 mg PO DAILY 0RF hydrochlorothiazide 12.5 mg tablet 12.5 mg PO DAILY 0RF losartan 50 mg tablet 50 mg PO DAILY 0RF trazodone 150 mg tablet 150 mg PO BEDTIME 0RF diazepam 2 mg tablet 2 mg PO DAILY 0RF pravastatin 80 mg tablet 80 mg PO DAILY 0RF metoprolol succinate 25 mg tablet extended release 24 hr 25 mg PO DAILY 0RF levothyroxine 50 mcg tablet 50 mcg PO DAILY 0RF Discharge Orders: Discharge Order (Routine); Ordered 09/08/21 Ordered By: Saloni Álvarez Diet: regular diet Activity on Discharge: Use cane or walker Stand Alone Forms: Patient Portal Discharge page Care Plan Goals: Restore function of joint Health Concerns: none Plan of Treatment: Physical Therapy Pain management DVT prophylaxis Assessment: Physical Therapy for Total knee arthroplasty: WBAT, gait training, ROM 0-12, quad strength * Limit stair climbing * No showering, no tub bath-keep dressing clean, dry and intact * No driving x6 weeks * Continue Aspirin twice a day x 6 weeks * Follow up with [facility] Orthopedics in 2 weeks: * --you will also have your first out patient PT eval on the day of your post op appt-so please plan on being in the office that day for an extended period of time.
[2021-09-08 14:13] LABS: COVID-19 Test Negative (Negative); IDNOW Serial# 16C4AD1C
== END 2021-09-08 16:10 | disposition skilled nursing facility (03) | DRG 468 ==
LOC: HO.SSSA 06:07 → HO.S3 15:22
PROVIDERS: Admitting Provider Physician Assistant; PCP Internal Medicine; Visit Provider Orthopaedic Surgery
PROC: 0SPC0JZ Removal of Synthetic Substitute from Right Knee Joint, Open Approach (ICD-10-PCS; CPT 27487; principal; 2021-09-06 07:30)
DX: T84.89XA Other specified complication of internal orthopedic prosthetic devices, implants and grafts, initial encounter (principal); K21.9 Gastro-esophageal reflux disease without esophagitis; I10 Essential (primary) hypertension; E03.9 Hypothyroidism, unspecified; Z96.643 Presence of artificial hip joint, bilateral; Z20.822 Contact with and (suspected) exposure to COVID-19; Y79.2 Prosthetic and other implants, materials and accessory orthopedic devices associated with adverse incidents; Z86.73 Personal history of transient ischemic attack (TIA), and cerebral infarction without residual deficits; Z87.891 Personal history of nicotine dependence; Z88.5 Allergy status to narcotic agent; Z88.6 Allergy status to analgesic agent; Z79.890 Hormone replacement therapy; Z79.899 Other long term (current) drug therapy
CPT/HCPCS: 36415; 73560; 80048; 80051; 82565; 84520; 85014; 85018; 85025; 86850; 86900; 86901; 87635; 87640; 87641; 88305; 88311; 93005; 97110; 97116; 97162; C1713; C1776; J0690; J1170; J2250; J2405; J2550; J2795

== ENCOUNTER 2021-09-22 07:13 | Outpatient (RCR) | payer MEDICARE, MEDICAID, SELFPAY | END 2021-11-11 11:31 | disposition home or self-care (01) | LOC: HO.PT 07:13 | PROVIDERS: Visit Provider Physician Assistant | DX: Z96.651 Presence of right artificial knee joint (principal) ==

== ENCOUNTER → 2021-09-22 13:00 | Outpatient (BNVA) | payer MEDICARE, MEDICAID, SELFPAY | PROVIDERS: Visit Provider Physician Assistant | DX: Z13.89 Encounter for screening for other disorder (principal) ==

== ENCOUNTER 2021-11-24 07:48 | Outpatient (REF) | payer MEDICARE, MEDICAID, SELFPAY ==
--- NOTE | ~2021-11-24 | XR_ITS ---
EXAMINATION: XR KNEE, RIGHT XR KNEE AP STANDING CLINICAL INFORMATION: Pain. COMPARISON: Radiographs dated 09/06/2021 and 08/23/2021. TECHNIQUE: Lateral and axial views of the right knee were obtained. AP bilateral standing view of the knees was obtained. FINDINGS: Prosthetic components of the right total knee arthroplasty are appropriately aligned without periprosthetic fracture or lucency. No component migration. There is a moderate right knee joint effusion. There is mild asymmetric narrowing of the medial joint space compartment of the left knee. The lateral joint space compartment is well-maintained. No significant varus or valgus configuration is seen bilaterally. XR/XR knee standing BI IMPRESSION: 1. Appropriate alignment of the right total knee arthroplasty, without evidence of complications. 2. A moderate right knee joint effusion is seen. 3. There is mild degenerative change of the medial joint space compartment of the left knee.
--- NOTE | ~2021-11-24 | XR_ITS ---
EXAMINATION: XR KNEE, RIGHT XR KNEE AP STANDING CLINICAL INFORMATION: Pain. COMPARISON: Radiographs dated 09/06/2021 and 08/23/2021. TECHNIQUE: Lateral and axial views of the right knee were obtained. AP bilateral standing view of the knees was obtained. FINDINGS: Prosthetic components of the right total knee arthroplasty are appropriately aligned without periprosthetic fracture or lucency. No component migration. There is a moderate right knee joint effusion. There is mild asymmetric narrowing of the medial joint space compartment of the left knee. The lateral joint space compartment is well-maintained. No significant varus or valgus configuration is seen bilaterally. XR/XR knee RT 2V IMPRESSION: 1. Appropriate alignment of the right total knee arthroplasty, without evidence of complications. 2. A moderate right knee joint effusion is seen. 3. There is mild degenerative change of the medial joint space compartment of the left knee.
== END 2021-11-24 07:49 | disposition home or self-care (01) ==
LOC: HO.HOSX 07:48
PROVIDERS: Visit Provider Orthopaedic Surgery
DX: M25.561 Pain in right knee (principal)
CPT/HCPCS: 73560; 73565

== ENCOUNTER → 2022-01-20 09:55 | Outpatient (BNVA) | payer MEDICARE, MEDICAID, SELFPAY | PROVIDERS: Visit Provider Orthopaedic Surgery | DX: M25.461 Effusion, right knee (principal); Z96.651 Presence of right artificial knee joint | CPT/HCPCS: 99212 ==

== ENCOUNTER 2022-03-14 11:00 | Outpatient (RCR) | payer MEDICARE, MEDICAID, SELFPAY ==
--- NOTE | 2021-11-11 15:58 | MHC.PT.EP ---
[facility] [place] Office [place] Office [place] Office [address] [place] [address] [address] [phone] F: [phone] F: [phone] F: [phone] F: [phone] Physical Therapy Plan of Care Date of Evaluation: Date of Surgery: 09/06/21 Diagnosis: R TKR REVISION 09/06/21 Assessment: Pt IS 66 YO F REFERRED TO PT FROM ORTHO (DR SMITH) S/P L KNEE TKR (REVISION) ON 09/06/21 (ORIGINAL [facility] 2012). WENT TO [facility] THEN HOME PT NOW REFERRED TO OUTPt PT. PRESENTS WITH ANTALGIC GT WITH ST CANE, DECREASED KNEE ROM, DECREASED LE STRENGTH, SWELLING AND PAIN AFFECTING ADLS. Pt LIVES WITH HER IN 2 FLOOR HOUSE. 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 SHOULD BENEFIT FROM PT TO ADDRESS THESE ISSUES Frequency and Duration: The patient will be seen 2/WK X 6 WKS Short Term Goals: 1. INCREASED AWARENESS KNEE CARE 2. INCREASED KNEE ROM L 0-130 3. I HEP WITH DC EX PLAN 4. IMPROVED STAIR NEGOTIATION (ABLE TO GO STEP/OVER STEP) Slipper Maker Goals: 1.DECREASED L KNEE PAIN AT LEAST 50% WITH ADLS 2. DECREASED L KNEE SWELLING NOTED 3. I GT WITHOUT AD Treatment Plan: Modalities to reduce pain, spasms and effusion. Manual therapy to restore motion and function. Therapeutic exercise to improve strength and flexibility. Neuromuscular re-education for posture and balance. Therapeutic activities to return to functional activities of daily living. Electronically signed by: RASHAWN PITT PT Please sign and return to therapist. Thank you for your referral.
--- NOTE | 2022-03-29 14:21 | MHC.PT.DC ---
[facility] [place] Office [place] Office [place] Office [address] Kala Ryan 140 [facility] [phone] F: [phone] F: [phone] F: [phone] F: [phone] Physical Therapy Discharge Report Diagnosis: R TKR REVISION 09/06/21 Date of Surgery: 09/06/21 Date of Evaluation: 11/11/21 Date of Discharge: 03/29/22 Treatments to Date: 16 Cancellations to Date: No Shows to Date: Discharge Status: Improved Function Independent with HEP Discharge Summary: HAS MET MOST PT GOALS, CONTINUES WITH SWELLING (?CYST) POST R KNEE AND C/O R DAVIS PAIN (REPORTS SWELLING AT TIMES ALSO, BUT NOT NOTED TODAY) Electronically signed by: RASHAWN PITT PT Please sign and return to therapist. Thank you for your referral.
== END 2022-03-29 14:22 | disposition home or self-care (01) ==
LOC: HO.PT 11:00
PROVIDERS: Visit Provider Orthopaedic Surgery
DX: Z96.651 Presence of right artificial knee joint (principal)
CPT/HCPCS: 97110; 97140; 97162; 97530; 97535

== ENCOUNTER 2022-08-24 10:51 | Outpatient (REF) | payer MEDICARE, MEDICAID, SELFPAY ==
--- NOTE | ~2022-08-24 | XR_ITS ---
EXAMINATION: Knee x-ray CLINICAL INFORMATION: Pain. Knee replacement. COMPARISON: Previous x-ray most recent November 2021 TECHNIQUE: Standing AP view of both knees and lateral and sunrise view of the right knee FINDINGS: Right: There is a 3 component right knee replacement in satisfactory position. No fracture, dislocation or x-ray evidence of loosening is seen. There is soft tissue calcification and ossification adjacent to the medial knee joint similar to most recent exam likely related to old trauma. There is a small joint effusion. Standing AP view of the left knee demonstrates medial degenerative meniscal calcification and joint space narrowing. XR/XR knee RT 2V IMPRESSION: Satisfactory appearance of right knee replacement.
--- NOTE | ~2022-08-24 | XR_ITS ---
EXAMINATION: Knee x-ray CLINICAL INFORMATION: Pain. Knee replacement. COMPARISON: Previous x-ray most recent November 2021 TECHNIQUE: Standing AP view of both knees and lateral and sunrise view of the right knee FINDINGS: Right: There is a 3 component right knee replacement in satisfactory position. No fracture, dislocation or x-ray evidence of loosening is seen. There is soft tissue calcification and ossification adjacent to the medial knee joint similar to most recent exam likely related to old trauma. There is a small joint effusion. Standing AP view of the left knee demonstrates medial degenerative meniscal calcification and joint space narrowing. XR/XR knee standing BI IMPRESSION: Satisfactory appearance of right knee replacement.
== END 2022-08-24 10:52 | disposition home or self-care (01) ==
LOC: HO.HOSX 10:51
PROVIDERS: Visit Provider Orthopaedic Surgery
DX: Z96.651 Presence of right artificial knee joint (principal)
CPT/HCPCS: 73560; 73565; 99212

== ENCOUNTER → 2022-10-05 11:52 | Outpatient (BNVA) | payer MEDICARE, MEDICAID, SELFPAY | PROVIDERS: Visit Provider Orthopaedic Surgery | DX: Z96.651 Presence of right artificial knee joint (principal) | CPT/HCPCS: 99212 ==

== ENCOUNTER 2022-10-20 11:00 | Outpatient (RCR) | payer MEDICARE, MEDICAID, SELFPAY ==
--- NOTE | 2022-09-22 14:24 | MHC.PT.EP ---
[facility] [place] Office [place] Office [place] Office [address] Kala Ryan [address] [phone] F: [phone] F: [phone] F: [phone] F: [phone] Physical Therapy Plan of Care Date of Evaluation: Date of Surgery: 09/06/21 Diagnosis: POST REVISION OF Rt TKA 09/06/21-> quad strengthening & maintaining full leg extension Assessment: 67 YO FEMALE REF TO PT W DX OF FALLING, S/P REVISION TKR ON 09/06/21, AND STRENGTH DEFICITS AND SORENESS IN Rt LE. 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 OBJECTIVE FINDINGS: LIMITED AROM Rt KNEE, TIGHT PSOAS MM HANNAH AND DECR ANKLE DF HANNAH; DECR STRENGTH IN PROX / LUMBOPELVIC AND Rt LE, PAIN IN RIGHT KNEE, (+) SCOLIOSIS W H/O HANNAH RAZA, AND DECR COMPLIANCY W HEP FROM PRIOR PT. FUNCTIONALLY, SHE HAS COMPENSATORY GAIT, MODIFIED STAIR MGMT, DECR STANDING, SLEEPING, AND DECR VIKY TO ADLs REQ Rt KNEE FLEX. Pt MAY BENEFIT FROM RE-INTRO OF HEP, PAIN MGMT, AND DEV SELF-SX TECHN FOR MAXIMIZING FUNCTIONAL INDEPENDENCE. Frequency and Duration: The patient will be seen 2 X wk X 6 wks Short Term Goals: *Pt'S RIGHT KNEE PAIN DECR TO 2-3/10 *Pt INCREASE Rt KNEE ROM -> 0* EXTEN AND PROGRESSIVELY TO 120* FLEX *INCR FLEXIB IN PSOAS/ CALF MM TO IMPROVE EFFICIENCY OF GAIT ON LEVEL AND STAIRS Half-Way Goals: Pt INDEP W HEP PROGRESSION AND SELF-SX MGMT STRATEGIES Pt RESUME REG ADLs EVIDENT W IMPROVED LEFI SCORE (AT EVAL ) Pt INCR Rt LE STRENGTH BY 1 GRADE Treatment Plan: Modalities to reduce pain, spasms and effusion. Manual therapy to restore motion and function. Therapeutic exercise to improve strength and flexibility. Neuromuscular re-education for posture and balance. Therapeutic activities to return to functional activities of daily living. Electronically signed by: LOTUS DIAZ,PT Please sign and return to therapist. Thank you for your referral.
--- NOTE | 2022-10-20 12:55 | MHC.PT.DC ---
[facility] [place] Office [place] Office [place] Office [address] Kala Ryan [address] [phone] F: [phone] F: [phone] F: [phone] F: [phone] Physical Therapy Discharge Report Diagnosis: POST REVISION OF Rt TKA 09/06/21-> quad strengthening & maintaining full leg extension Date of Surgery: 09/06/21 Date of Evaluation: 09/22/22 Date of Discharge: 10/20/22 Treatments to Date: 7 Cancellations to Date: 0 No Shows to Date: 0 Discharge Status: Achieved Goals Improved Function Independent with HEP Discharge Summary: Pt HAS PROGRESSED NICELY IN PT- SHE HAS MET HER PT GOALS AT THIS TIME AND IS D/C'D THIS DATE - HER LEFI SCORE AT EVAL WAS 11/80 AND TODAY AT D/C 46 /80. HER AROM IN Rt KNEE IS 0* TO 126* AND HER STRENGTH IS MUCH IMPROVED - SHE DEMON DECENT, EFFICIENT GAIT MECHANICS ON LEVEL GROUND AND STAIRS. WE HAVE EMPHASIZED THE IMPORTANCE OF HEP COMPLIANCY UPON D/C FROM PT. Electronically signed by: LOTUS DIAZ,PT Please sign and return to therapist. Thank you for your referral.
== END 2022-10-20 12:55 | disposition home or self-care (01) ==
LOC: HO.PT 11:00
PROVIDERS: Visit Provider Orthopaedic Surgery
DX: Z96.651 Presence of right artificial knee joint (principal)
CPT/HCPCS: 97110; 97161

== ENCOUNTER 2023-03-21 09:17 | Outpatient (AMB) | payer MEDICARE, MEDICAID, SELFPAY ==
--- NOTE | 2023-03-21 09:22 | A.OFFVIS_ITS ---
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 Accompanied by: Self / Same As Patient Allergies oxycodone [From PERCOCET] Allergy (Intermediate, Verified 03/21/23 09:29) Itching aspirin [ASPIRIN] Adverse Reaction (Intermediate, Verified 03/21/23 09:29) STOMACH IRRITATION Medication List - Last Reconciled 03/21/23 by Larry Mccain MD celecoxib 200 mg PO BID diazepam 2 mg PO DAILY hydrochlorothiazide 12.5 mg PO DAILY levothyroxine 50 mcg PO DAILY losartan 50 mg PO DAILY metoprolol succinate ER 25 mg PO DAILY omeprazole 40 mg PO DAILY pravastatin 80 mg PO DAILY trazodone 150 mg PO BEDTIME HPI HPI Comments History of Present Illness Details Leann has been referred for evaluation of palpitations. She states she has been seen at [facility] many years ago but not recently. She saw Dr. Kay. She carries a diagnosis of SVT but not clear if it is a definitive diagnosis or suspicion. Patient states she gets frequent palpitations, sometimes almost daily. They last for several minutes and then resolved spontaneously. With activity, she gets short of breath. She also gets chest pains, again somewhat randomly and can happen with or without exertion. No documented coronary disease or myocardial infarction. Many comorbidities. [facility] Medical History COVID-19 vaccine series completed Elevated cholesterol GERD (gastroesophageal reflux disease) Hepatitis C HTN (hypertension) Hypothyroid TIA (transient ischemic attack) Surgical History History of total right knee replacement (09/06/21) History of knee replacement procedure of right knee (11/19/12) History of total left hip replacement (04/18/17) History of total right hip replacement (01/29/18) History of esophagogastroduodenoscopy (EGD) H/O colonoscopy History of prosthetic unicompartmental arthroplasty of right knee Family History (Updated 03/21/23 @ 09:31 by Mayi Chaudhry) Father Heart problem Social History Are you a primary patient care director to a significant other at home: No Do you presently have visiting nurse or other home services: Yes (home health aid) Patient Tobacco Use Status: Former Tobacco user Quit Date: age 55 Tobacco use type: Cigarette Years Smoked: 35 Advance Directives Date on File: 04/18/16 service: No Current occupational status: retired Review of Systems Const Denies chills, Denies daytime sleepiness, Denies fatigue, Denies fever(s), Denies frequent falls, Denies night sweats, Denies snoring, Denies weakness, Denies weight gain and Denies weight loss Eyes Denies loss of vision ENT Denies dizziness and Denies hearing loss Card Denies chest pain, Denies chest pain with activity, Denies syncope, Denies rapid heart rate, Denies claudication, Denies leg edema, Denies palpitations and Denies orthopnea Resp Denies cough, Denies excessive phlegm production, Denies snoring and Denies wheezing GI Denies abdominal pain, Denies hematochezia, Denies change in bowel habits, Denies change in stool character, Denies heartburn, Denies nausea and Denies vomiting Denies hematuria, Denies urinary frequency and Denies dysuria Musc Denies arthralgias, Denies muscle weakness, Denies numbness and Denies tingling Skin/Breast Denies nail changes and Denies rash Neuro Denies Abnormal speech present, Denies dizziness, Denies syncope, Denies frequent falls, Denies loss of vision, Denies memory loss, Denies numbness, Denies tingling and Denies weakness Psych Denies depression and Denies memory loss Endo Denies fatigue and Denies palpitations Aller/Immun Denies wheezing Physical Exam Vital Signs: Last Vital Signs Pulse 91 03/21/23 09:31 BP 130/76 03/21/23 09:31 BMI result Body Mass Index 33.5 Const General: comfortable and no acute distress Orientation/consciousness: patient oriented x3 HEENT Other: Unremarkable Head: Yes normal to inspection Neck Neck: Yes normal visual inspection Chest Chest palpation & inspection: normal inspection of the chest Resp Auscultation: clear to auscultation bilaterally Cardio Palpation: normal PMI Heart sounds: S1 normal heart sound present, S2 normal heart sound present, no gallops, no murmurs and no rubs GI Palpation (GI): Soft to palpation Back/Spine/Pelvis Other: unremarkable Skin General skin exam: no rashes or lesions noted Neuro General: patient oriented x3 Speech: No Abnormal speech present Extrem General: Yes normal to inspection Psych Mental Status: mental status grossly normal Office Procedures EKG Details: EKG with sinus rhythm at 91/Min T inversions in anterior leads and otherwise nonspecific ST-T changes; [place] [id number], Complete Assessment & Plan Assessment & Plan (1) Heart palpitations: Code(s): R00.2 - Palpitations (2) Precordial chest pain: Code(s): R07.2 - Precordial pain (3) Shortness of breath: Code(s): R06.02 - Shortness of breath (4) Abnormal EKG: Code(s): R94.31 - Abnormal electrocardiogram [ECG] [EKG] Plan Multiple comorbidities, palpitations, chest pain, shortness of breath, abnormal appearing EKG. Will do a comprehensive workup including echocardiogram, stress test and Holter. Will contact [facility] for records. Follow-up after the above. Orders: Orders ECG 7 day holter monitor Today R00.2 - Palpitations CA echo transthoracic complete Today I25.10 - Atherosclerotic heart disease of [place] coronary artery without angina pectoris, R00.2 - Palpitations NM cardiolite stress test Today R00.2 - Palpitations, R07.2 - Precordial pain CA stress test Today R00.2 - Palpitations, R07.2 - Precordial pain Medications: Changed From celecoxib 200 mg PO BID 60 caps 1RF To celecoxib 200 mg PO BID Coding Level of Care Code New Pt Level 4 (51198) Diagnoses Heart palpitations R00.2 Precordial chest pain R07.2 Shortness of breath R06.02 Abnormal EKG R94.31 CPT Codes EKG - CPT: 91582-[id number], Complete ([id number])
[2023-03-21 09:31] VITALS: BP 130/76; PULSE 91; BMI 33.5
== END 2023-03-21 09:54 | disposition home or self-care (01) ==
PROVIDERS: Visit Provider Internal Medicine
DX: R00.2 Palpitations (principal); R07.2 Precordial pain; R06.02 Shortness of breath; R94.31 Abnormal electrocardiogram [ECG] [EKG]
CPT/HCPCS: 93010; 99204

== ENCOUNTER → 2023-03-21 09:17 | Outpatient (BNVA) | payer MEDICARE, MEDICAID, SELFPAY | PROVIDERS: Visit Provider Internal Medicine | DX: R00.2 Palpitations (principal); R07.2 Precordial pain; R06.02 Shortness of breath; R94.31 Abnormal electrocardiogram [ECG] [EKG] | CPT/HCPCS: 93005; 99202 ==

== ENCOUNTER → 2023-05-17 08:45 | Outpatient (REF) | payer MEDICARE, MEDICAID, SELFPAY ==
--- NOTE | ~2023-05-17 | NM_ITS ---
Lexiscan Myocardial perfusion study Indication: Chest pain, shortness of breath, assess for coronary disease and ischemia Technique: The patient was brought in for a Lexiscan perfusion study on 05/17/2023 and was injected 0.4 mg of Lexiscan intravenously. Within a minute of this injection 30 mCi of sestamibi was given intravenously. Images were obtained using the SPECT gamma camera interlaced with the gating device. Images were obtained in supine position. Resting perfusion study was performed on 05/23/2023. Patient was administered 30 mCi of sestamibi intravenously at rest. Images were then obtained in supine position. Images were processed with the software and compared side to side in short axis, horizontal long axis and vertical long axis views. Total DLP 116mGy-cm. Findings: Raw acquisition reviewed. The stress perfusion study showed mildly diminished tracer uptake in the distal part of lateral wall. With CT attenuation correction, there is improvement suggestive of soft tissue attenuation artifact. The gated study shows normal LV systolic function with calculated LVEF of 62%. LV cavity is normal in size. The gated study shows normal wall thickening and contraction of segments. Resting study shows no significant perfusion defects. Gating at rest reveals normal wall motion with ejection fraction at 50%-visually higher. The findings are consistent with reversible distal lateral defect suspected to be from soft tissue attenuation artifact. NM/NM cardiolite stress test Impression: 1. Myocardial perfusion imaging study shows no clear evidence of any ischemia or infarction. Probably normal myocardial perfusion. 2. Gated LVEF is 62% during stress. 3. Transient ischemic dilatation not present. EKG component of the test reported separately.
--- NOTE | 2023-05-17 08:50 | CA_ITS ---
Transthoracic Echocardiogram Patient (Last, First, Middle): Leann Meeks, Gender: Female Date of : 1955 Age: 68 Procedure Date: 05/17/2023 Procedure Type: Transthoracic Echocardiogram Location: OP Height: 154.94 cm Weight: 82.56 kg BSA: 1.81 m2 Heart Rate: bpm BP: 122 / 78 mmHg Building Architectural Designer: SIERRA Referring MD: Larry Mccain MD Personal Security Specialist: Tariq Hoang MD Symptoms: I25.10 - Atherosclerotic heart disease of [place] coronary artery without... Study Quality: Adequate w contrast ECG Rhythm: Sinus Conclusions: - 1. Technically limited study despite use of contrast agent 2. Normal LV ejection fraction of 65-70% with impaired relaxation filling pattern 3. Normal cardiac valvular Doppler Findings Procedure Information Contrast agent, definity, is being given per protocol without apparent complications. Left Ventricle Normal left ventricular size, thickness, and systolic function. The visually estimated ejection fraction is between 65-70%. Spectral Doppler is indicative of an impaired relaxation filling pattern. E/E prime ratio is between 8 and 15 consistent with indeterminate filling pressures. Right Ventricle Normal right ventricular cavity size. Atria The left atrium is likely dilated. Interatrial shunt cannot be excluded. The right atrium is normal in size. Aortic Valve The aortic valve was not well visualized. There is no aortic valve stenosis. There is no aortic valve regurgitation. Mitral Valve Likely normal mitral valve structure and function. There is trace mitral valve regurgitation. There is no mitral valve stenosis. Pulmonic Valve The pulmonic valve was not well visualized. Tricuspid Valve Likely normal tricuspid valve structure and function. Tricuspid regurgitation envelope is inadequate for calculation of right ventricular systolic pressure. Normal right atrial pressure. Great Vessels All visible segments of the aorta are normal in size. The pulmonary artery was not well visualized. Venous The inferior vena cava is normal in size and collapses greater than 50% with inspiration. Pericardium/Pleural The pericardium was not well visualized. Prior Study Comparison No prior study available for comparison. Measurements 2D Linear Measurements IVSd: 0.97 0.6-0.9/0.6-1.0 cm LVIDd: 3.19 3.9-5.3/4.2-5.9 cm LVIDd Index: 1.76 2.4-3.2/2.2-3.1 cm/m2 LVIDs: 2.12 2.0-3.6 cm LVPWd: 0.82 0.7-1.1 cm LA Diam: 2.70 2.7-3.8/3.0-4.0 cm LAIDs Index: 1.49 1.5-2.3 cm/m2 LV Mass: 94.53 67-162/88-224 g LV Mass Index: 52.23 43-95/49-115 g/m2 LVOT Diam: 2.00 3.0+(-)1.3 cm 2D Systolic Function EF 4C: 70.80 >55% EF 2C: 68.50 >55% EF BiP: 68.90 >55% Mitral Valve MV Pk E: 0.77 MV PK A: 0.80 MV Decel Time: 256.00 E/A: 1.00 E'Lateral: 5.87 E'Medial: 4.57 E/E' Med: 16.90 E/E' Lat: 13.10 PHT: 75.00 MVA PHT: 2.93 Decel Vance: 3.02 Aortic Valve AoV Pk Gareth: 1.36 AoV Mn Gareth: 0.93 AoV VTI: 0.33 AoV Pk Grad: 7.00 Aov Mn Grad: 4.00 JAYLYN Cont.VTI: 2.41 LVOT LVOT Pk Gareth: 1.01 LVOT Mn Gareth: 0.74 LVOT VTI: 0.25 LVOT Pk Grad: 4.00 LVOT Mn Grad: 2.00 LVOT Diam: 2.00 LVOT Area: 3.14 Diastolic Function MV Pk E: 0.77 MV Pk A: 0.80 E/A: 1.00 E'Medial: 4.57 E/E' Med: 16.90 E' Laterial: 5.87 E/E' Lat: 13.10 Right Ventricle TAPSE (mm): 22.60 TVS' Gareth: 9.57 Tricuspid Valve RA Press: 3.00 Great Vessels Aorta Sinus of Valsalva: 3.27 2.0-3.[address] [place]: 2.78 1.7-3.4 cm Ao Asc: 3.20 2.1-3.4 cm Updated in Other Vendor System with Status of Final Tariq Hoang MD electronically signed on 05/17/2023 3:05:31 PM with status of Final
--- NOTE | 2023-05-17 08:50 | CA_ITS ---
Acquisition Time: 2023-05-17 10:02:52 Total Exercise Time: 00:00:06 Test Indications: Chest pain, SOB Medications: See H Protocol: KIMBERLEY Max HR: 093 BPM 62% of Pred: 150 BPM Max BP: 122/066 mmHG Max Work Load: 1.0 METS Exercise stress test exericse 6 sec of Kimberley protocol and stopped due to safety of patient as she could not keep up with it. Test changed to pharmaoclogical stress test with l;exiscan. Pharmacoloigcal stress test with Lexiscan injeciton while sitting and kicking her legs, without anginal symptoms, without arrhythmias, with normotensive response to exercise, with nondiagnoisitic EKGs. Aminophylline 75mg IVP given to reverse Lexiscan. Nuclear images pending. Test reviewed with Dr. Jara. Referred By: Larry Mccain Overread By: Valerie Hale
--- NOTE | 2023-05-17 08:50 | HM_ITS ---
* Total monitoring time 5 days. * Underlying rhythm is sinus with an average rate of 73/Min. * Rare supraventricular ectopy with very brief runs. * Rare ventricular ectopy. * No significant pauses or AV blocks. * Symptoms in patient diary including shortness of breath, pain, rapid heartbeat associated with sinus rhythm. MTDD
== END ==
LOC: HO.CARD 08:45
PROVIDERS: PCP Internal Medicine; Visit Provider Internal Medicine
DX: R07.2 Precordial pain (principal); R00.2 Palpitations
CPT/HCPCS: 78452; 93017; 93242; 93306; A9500; J0280; J2785; Q9957

== ENCOUNTER → 2023-05-17 08:50 | Outpatient (BNV) | payer MEDICARE, MEDICAID, SELFPAY | PROVIDERS: PCP Internal Medicine; Visit Provider Nurse Practitioner | DX: R07.2 Precordial pain (principal); R06.02 Shortness of breath; I47.10 Supraventricular tachycardia, unspecified | CPT/HCPCS: 78452; 93016; 93018; 93244; 93306 ==

== ENCOUNTER 2023-06-14 08:34 | Outpatient (AMB) | payer MEDICARE, MEDICAID, SELFPAY ==
--- NOTE | 2023-06-14 08:37 | MHC.OFFVIS ---
Intake Intake Visit Reasons: OV - RT TKA 09/06/21 pain Intake Note: Leann is a 68 year old female who presents today for a follow up of her right knee due to some increased pain. Right TKA 11/19/2012 with Revision on 09/06/21. Patient reports that she has had an increased pain for about 2 years now, she took a fall on the right knee due to uneven pavement. Allergies oxycodone [From PERCOCET] Allergy (Intermediate, Verified 06/14/23 08:37) Itching aspirin [ASPIRIN] Adverse Reaction (Intermediate, Verified 06/14/23 08:37) STOMACH IRRITATION HPI OV - RT TKA 09/06/21 pain HPI Details Leann is a 67 year old woman who returns to discuss her right knee pain. She is S/P right rTKA, DOS: 09/06/21 She complains of increased pain in the medial aspect of her right knee, which worsened after a fall on pavement, but she says her pain has been present for ~2 years now, since her surgery. She has completed several courses of PT and performs at-home exercises, without much improvement. She is able to function and the pain is tolerable. The swelling does bother her with stairs. Most of her pain is medial. 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/18/17) History of total right hip replacement (01/29/18) History of esophagogastroduodenoscopy (EGD) H/O colonoscopy History of prosthetic unicompartmental arthroplasty of right knee Family History Father Heart problem Social History Are you a primary animal caretaker to a significant other at home: No Do you presently have visiting nurse or other home services: Yes (home health aid) Patient Tobacco Use Status: Former Tobacco user Quit Date: age 55 Tobacco use type: Cigarette Years Smoked: 35 Advance Directives Date on File: 04/18/16 service: No Current occupational status: retired Review of Systems Const All systems reviewed & are unremarkable except as noted in HPI and below Physical Exam Const General: no acute distress, alert and awake Orientation/consciousness: patient oriented x3 HEENT Head: Yes normocephalic and Yes atraumatic Mouth: moist mucous membranes Eyes General: appearance normal, both eyes and all related structures EOM: EOMs intact bilaterally Chest Other: no audible wheezing. Resp Other: No audible wheezing Effort & Inspection: normal respiratory effort and able to speak in complete sentences Cardio Other: Radial pulse palpable with no rythmic abnormalities Jugular venous distension: no JVD Back/Spine/Pelvis Cervical Spine: normal cervical lordosis Skin General skin exam: turgor normal Rashes: no rashes Neuro General: patient oriented x3 Extrem Other: Visual inspection: inc c/d/i 0-130 mild effusion stable arc of motion. Stable to v/v stress TTP medial femoral condyle Psych Appearance: grossly normal Mental Status: mental status grossly normal Speech and movement: Normal speech and movement present Affect: normal affect Attitude: cooperative Results Reviewed Results Reviewed: I personally reviewed relevant radiographs. Unchanged appearance of revision r TKA with loose bodies medial femoral condyle but stable compared to prior Assessment & Plan Assessment & Plan (1) Status post revision of total replacement of right knee: Code(s): Z96.651 - Presence of right artificial knee joint Plan: Stable s/p revision right TKA. No mechanical symptoms. Loose bodies adjacent to MFC. No intervention warranted at this time. May consider referral to PM if pain worsens. Discussed with her. Celebrex written. Plan Prepared for Zack Kumar MD by Thiago Lucio, medical insurance claims specialist, on 06/14/23 at 8:45 AM, EST. Orders: Orders XR knee RT 2V Today M25.569 - Pain in unspecified knee XR knee standing BI Today M25.569 - Pain in unspecified knee Medications: New celecoxib 200 mg PO BID 60 caps 0RF Coding Level of Care Code Est Pt Level 4 (98432) Diagnoses Status post revision of total replacement of right knee Z96.651
== END 2023-06-14 09:40 | disposition home or self-care (01) ==
PROVIDERS: PCP Internal Medicine; Visit Provider Orthopaedic Surgery
DX: M25.561 Pain in right knee (principal); Z96.651 Presence of right artificial knee joint
CPT/HCPCS: 99214

== ENCOUNTER 2023-06-14 08:44 | Outpatient (REF) | payer MEDICARE, MEDICAID, SELFPAY ==
--- NOTE | ~2023-06-14 | XR_ITS ---
EXAMINATION: XR KNEE, RIGHT XR KNEE AP STANDING CLINICAL INFORMATION: Pain. COMPARISON: Prior radiographs, most recently 08/24/2022. TECHNIQUE: Lateral and axial views of the right knee were obtained. AP bilateral standing view of the knees was obtained. FINDINGS: Prosthetic components of the right total knee arthroplasty are appropriately aligned, without periprosthetic fracture or abnormal lucency. No component migration. No joint effusion. There are Kayli-Stieda calcifications adjacent to the right medial femoral condyle, suggesting a chronic MCL injury. There are atherosclerotic calcifications. The lateral and medial joint space compartments of the left knee are well-maintained. There is mild chondrocalcinosis of the medial joint space compartment. No varus or valgus configuration is seen bilaterally. XR/XR knee RT 2V IMPRESSION: 1. Appropriate alignment of the right total knee arthroplasty without evidence of complications. 2. There are Kayli-Stieda calcifications adjacent to the right medial femoral condyle, suggesting a chronic MCL injury. 3. There is chondrocalcinosis of the left knee, which can be associated with CPPD, gout or hypercalcemia.
--- NOTE | ~2023-06-14 | XR_ITS ---
EXAMINATION: XR KNEE, RIGHT XR KNEE AP STANDING CLINICAL INFORMATION: Pain. COMPARISON: Prior radiographs, most recently 08/24/2022. TECHNIQUE: Lateral and axial views of the right knee were obtained. AP bilateral standing view of the knees was obtained. FINDINGS: Prosthetic components of the right total knee arthroplasty are appropriately aligned, without periprosthetic fracture or abnormal lucency. No component migration. No joint effusion. There are Kayli-Stieda calcifications adjacent to the right medial femoral condyle, suggesting a chronic MCL injury. There are atherosclerotic calcifications. The lateral and medial joint space compartments of the left knee are well-maintained. There is mild chondrocalcinosis of the medial joint space compartment. No varus or valgus configuration is seen bilaterally. XR/XR knee standing BI IMPRESSION: 1. Appropriate alignment of the right total knee arthroplasty without evidence of complications. 2. There are Kayli-Stieda calcifications adjacent to the right medial femoral condyle, suggesting a chronic MCL injury. 3. There is chondrocalcinosis of the left knee, which can be associated with CPPD, gout or hypercalcemia.
== END 2023-06-14 08:45 | disposition home or self-care (01) ==
LOC: HO.HOSX 08:44
PROVIDERS: Visit Provider Orthopaedic Surgery
DX: R00.2 Palpitations (principal); I47.10 Supraventricular tachycardia, unspecified; R94.31 Abnormal electrocardiogram [ECG] [EKG]; Z96.651 Presence of right artificial knee joint
CPT/HCPCS: 73560; 73565; 99212

== ENCOUNTER 2023-06-14 12:51 | Outpatient (AMB) | payer MEDICARE, MEDICAID, SELFPAY ==
--- NOTE | 2023-06-14 13:09 | A.OFFVIS_ITS ---
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 Allergies oxycodone [From PERCOCET] Allergy (Intermediate, Verified 06/14/23 08:37) Itching aspirin [ASPIRIN] Adverse Reaction (Intermediate, Verified 06/14/23 08:37) STOMACH IRRITATION Medication List - Last Reconciled 06/14/23 by Magda Vazquez, CARBURETOR MECHANIC-C celecoxib 200 mg PO BID diazepam 2 mg PO DAILY levothyroxine 50 mcg PO DAILY losartan-hydrochlorothiazide 50-12.5 mg 1 tab PO DAILY metoprolol succinate ER 50 mg PO DAILY montelukast 10 mg PO DAILY omeprazole 40 mg PO DAILY pravastatin 80 mg PO DAILY trazodone 150 mg PO BEDTIME HPI f/up testing HS HPI Details Leann is a 68-year-old female past medical history of hypertension, hyperlipidemia, SVT who was recently seen for atypical chest discomfort and heart palpitations. She underwent a stress test, echocardiogram and Holter monitor and now presents for follow-up. Today she reports that she is experiencing heart palpitations most days that feel rapid and typically last less than a minute. She says it occurs suddenly and resolves on its own without treatment. It does scare her and she will sit and take deep breaths until it resolves. She has not had any longer episodes. No concerning shortness of breath. She does get random discomfort in her chest, not brought on by exertional activities. No lightheadedness, presyncope, syncope, PND, orthopnea or edema. Taking meds as directed. FOR[facility]LY [facility], [facility] Medical History Hepatitis C GERD (gastroesophageal reflux disease) TIA (transient ischemic attack) COVID-19 vaccine series completed Elevated cholesterol HTN (hypertension) Hypothyroid Surgical History History of total right knee replacement (09/06/21) History of knee replacement procedure of right knee (11/19/12) History of total left hip replacement (04/18/17) History of total right hip replacement (01/29/18) History of esophagogastroduodenoscopy (EGD) H/O colonoscopy History of prosthetic unicompartmental arthroplasty of right knee Family History Father Heart problem Social History Are you a primary residential care facility manager to a significant other at home: No Do you presently have visiting nurse or other home services: Yes (home health aid) Patient Tobacco Use Status: Former Tobacco user Quit Date: age 55 Tobacco use type: Cigarette Years Smoked: 35 Advance Directives Date on File: 04/18/16 service: No Current occupational status: retired Review of Systems Const All systems reviewed & are unremarkable except as noted in HPI and below ENT Denies dizziness Card Denies chest pain, Denies chest pain at rest, Denies chest pain with activity, Reports rapid heart rate, Denies pedal edema, Denies edema, Denies leg edema, Denies lightheadedness, Reports palpitations, Denies dyspnea, Denies dyspnea on exertion and Denies orthopnea Resp Denies cough, Denies dyspnea and Denies dyspnea on exertion GI Denies hematochezia and Denies change in stool character Musc Denies abnormal gait, Denies limited range of motion, Denies muscle cramps, Denies muscle weakness, Denies numbness, Denies radiating pain into limb, Denies stiffness and Denies tingling Neuro Denies abnormal gait, Denies dizziness, Denies numbness and Denies tingling Endo Reports palpitations Physical Exam Vital Signs: Last Vital Signs Pulse 76 06/14/23 13:10 BP 134/92 H 06/14/23 13:10 BMI result Body Mass Index 33.8 Const General: cooperative, healthy appearing, comfortable and no acute distress Orientation/consciousness: patient oriented x3 Neck Neck: Yes normal visual inspection and Yes no JVD Resp Effort & Inspection: normal respiratory effort Auscultation: clear to auscultation bilaterally, no crackles, no rales, no rhonchi and no wheezes Cardio Jugular venous distension: no JVD Rate: regular rate Rhythm: regular rhythm Heart sounds: S1 normal heart sound present, S2 normal heart sound present, no murmurs and no rubs Neuro General: patient oriented x3 Extrem General: Yes normal to inspection Psych Appearance: grossly normal Mental Status: mental status grossly normal Speech and movement: Normal speech and movement present Assessment & Plan Assessment & Plan (1) Heart palpitations: Code(s): R00.2 - Palpitations Plan: Patient with reported history of SVT. She does report rapid heart palpitations lasting less than a minute though causing her concern. A Holter monitor was done on 05/17/2023 for 5 days showing sinus rhythm with average heart rate 73, rare SVE, brief runs noted. An echocardiogram was done 05/17/2023 showing EF 65- 70%, impaired relaxation, left atrium is likely dilated. She is currently on metoprolol XL 25 mg daily. She is reporting daily brief palpitations. Will have her increase metoprolol XL up to 50 mg daily. Vagal maneuvers reviewed. Emergency care if her sustained rapid heart palpitations. Avoid stimulants, drink decaf coffee. Cardiology follow-up in 3 months, sooner if needed. (2) SVT (supraventricular tachycardia): Code(s): I47.10 - Supraventricular tachycardia, unspecified Plan: As above (3) Abnormal EKG: Code(s): R94.31 - Abnormal electrocardiogram [ECG] [EKG] Plan: EKG done last visit showing sinus rhythm with T-wave inversions in the anterior leads. Reports of random chest discomfort, not clearly brought on by exertion. Nuclear stress test done 05/23/2023 shows normal myocardial perfusion imaging. EKG findings and chest discomfort do not seem to be related to ischemia. Cardiac risk factor modification reviewed with her. Continue with good blood pressure and cholesterol control. Plan Time spent on chart review, documentation, interview and assessment Medications: New metoprolol succinate ER 50 mg PO DAILY 30 tabs 5RF Coding Level of Care Code Est Pt Level 3 (51006) Diagnoses Heart palpitations R00.2 SVT (supraventricular tachycardia) I47.10 Abnormal EKG R94.31 Time Spent (min) 24
[2023-06-14 13:10] VITALS: BP 134/92; PULSE 76; BMI 33.8
== END 2023-06-14 14:29 | disposition home or self-care (01) ==
PROVIDERS: PCP Internal Medicine; Visit Provider Nurse Practitioner Family
DX: R00.2 Palpitations (principal); I47.10 Supraventricular tachycardia, unspecified; R94.31 Abnormal electrocardiogram [ECG] [EKG]
CPT/HCPCS: 99213

== ENCOUNTER 2023-09-20 13:04 | Outpatient (AMB) | payer MEDICARE, MEDICAID, SELFPAY ==
[2023-09-20 13:10] VITALS: BP 130/72; PULSE 66; BMI 33.1
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
== END 2023-09-20 13:42 | disposition home or self-care (01) ==
PROVIDERS: PCP Internal Medicine; Visit Provider Nurse Practitioner Family
DX: R00.2 Palpitations (principal); I47.10 Supraventricular tachycardia, unspecified; R94.31 Abnormal electrocardiogram [ECG] [EKG]; R07.2 Precordial pain; Z65.9 Problem related to unspecified psychosocial circumstances
CPT/HCPCS: 99213

== ENCOUNTER → 2023-09-20 13:04 | Outpatient (BNVA) | payer MEDICARE, MEDICAID, SELFPAY | PROVIDERS: PCP Internal Medicine; Visit Provider Nurse Practitioner Family | DX: I47.10 Supraventricular tachycardia, unspecified (principal); R00.2 Palpitations; R94.31 Abnormal electrocardiogram [ECG] [EKG]; R07.2 Precordial pain; Z65.9 Problem related to unspecified psychosocial circumstances | CPT/HCPCS: 99212 ==

== ENCOUNTER 2024-04-24 14:05 | Outpatient (AMB) | payer MEDICARE, SELFPAY ==
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
[2024-04-24 14:16] VITALS: BP 122/68; PULSE 59; BMI 32.7
--- OUTSIDE RECORDS SUMMARY | 2024-04-24 15:35 | XMS_ITS | Continuity of Care Document ---
Author Organization [facility] Adult Address [address] [place] [address]- Care Team Providers Care Director Medical Science Name Role Phone Baldo ROWE, [facility] Primary Care Physician Encounter [facility] Date(s): 02/28/24 - 03/29/24 [facility] Adult [address] [place] [address]- Attending Physician: Miguel Mckinley Encounter Type: Triage Allergies, Adverse Reactions, Alerts Substance Criticality Severity Reaction Reaction Severity Status Augmentin rash Active Percocet 7.5/325 itch all over Active Immunizations Given and Recorded Vaccine Date Status Refusal Reason influenza virus vaccine, inactivated 12/26/23 Kingsley rded influenza virus vaccine, inactivated 01/13/23 Kingsley rded influenza virus vaccine, inactivated 01/04/22 Kingsley rded influenza virus vaccine, inactivated 01/06/21 Kingsley rded influenza virus vaccine, inactivated 01/05/20 Kingsley rded influenza virus vaccine, inactivated 1 01/14/18 Gi yi influenza virus vaccine, inactivated 2 12/21/16 Gi yi influenza virus vaccine, inactivated 3 12/29/15 Gi yi influenza virus vaccine, inactivated 4 01/06/15 Gi yi influenza virus vaccine, inactivated 03/16/14 Give n influenza virus vaccine, inactivated 01/16/13 Give n influenza virus vaccine, inactivated 12/15/11 Give n influenza virus vaccine, inactivated 01/28/11 Give n influenza virus vaccine, inactivated 01/19/10 Give n influenza virus vaccine, inactivated 5 01/12/09 Gi yi influenza virus vaccine, inactivated 04/09/06 Give n SARS-CoV-2(COVID-19)mRNA-LNP vac([id number]) 12/26/23 Recorded SARS-CoV-2(COVID-19)mRNA-LNP vac([id number]) 01/13/23 Recorded SARS-CoV-2(COVID-19)mRNA-LNP vac([id number]) 06/28/23 Recorded tetanus/diphtheria/pertussis, acel(Tdap) 06/06/23 Recorded tetanus/diphtheria/pertussis, acel(Tdap) 09/08/15 Given RSV vaccine, preF A-preF B, recombinant 12/16/22 R ecorded [id number] 12y+ bivalent booster vax 01/04/22 Recorded SARS-CoV-2 (COVID-19) mRNA-1273 vaccine 08/03/21 R ecorded SARS-CoV-2 (COVID-19) mRNA-1273 vaccine 03/05/21 R ecorded SARS-CoV-2 (COVID-19) mRNA-1273 vaccine 6 08/26/20 Recorded SARS-CoV-2 (COVID-19) mRNA-1273 vaccine 7 07/29/20 Recorded Influenza Virus Vaccine (oldterm) 12/12/18 Recorde d Measles/Mumps/Rubella Virus Vaccine 10/17/18 Recor ded pneumococcal 23-valent vaccine 8 01/14/18 Given pneumococcal 23-valent vaccine 01/13/14 Given pneumococcal 23-valent vaccine 11/19/12 Recorded zoster vaccine, inactivated 11/02/17 Recorded zoster vaccine, inactivated 9 10/15/17 Given zoster vaccine, inactivated 10 07/26/17 Given pneumococcal 13-valent vaccine 11 12/21/16 Given Zostavax (oldterm) 12 03/16/15 Given hepatitis B adult vaccine 07/06/14 Given hepatitis B adult vaccine 03/16/14 Given hepatitis B adult vaccine 01/13/14 Given influ virus vac, H1N1, inactive(oldterm) 13 05/28/09 Given Diphth-Tetanus Toxoids Adsorbed(oldterm) 04/09/06 Given 1[facility] 2[facility] 5Admin Note: vis sheet 12/01/08 given 6Result Comment: [facility] 7Result Comment[facility] 8[facility] Note[facility] 9Admin Note: #2 shot 10Admin Note: [facility] 11Admin Note: [facility] 12Admin Note: Pharm 13Early/Late Reason: Other: Medications B-Complex with B-12 oral tablet 1 tablet, By Mouth, Daily, # 30 tablet, 0 Refills, Maintenance, 12/02/19 2:29:00 PM EDT, Tablet, [facility], 1 tablet By Mouth Daily, 156, cm, 12/02/19 13:53:00 EDT, Height, 79.4, kg, 12/01/19 9:18:00 EDT, Dry Weight Start Date: 12/02/19 Status: Ordered Quantity: 30.0 Unit: tablet Repeat number: 1 calcium-vitamin D 600 mg-400 intl units oral tablet 1 tablet, By Mouth, 2 times a day, # 180 tablet, 1 Refills, Maintenance, 06/04/17 12:04:24 PM EST, Tablet, [facility], 1 tablet By Mouth 2 times a day,x90 days Start Date: 06/04/17 Stop Date: 12/01/17 Status: Ordered Quantity: 180.0 Unit: tablet Repeat number: 2 celecoxib 200 mg oral capsule 1 capsule = 200 mg, By Mouth, 2 times a day, # 60 capsule, 3 Refills, Maintenance, 08/21/23 3:15:00 PM EDT, Capsule, [facility], Partial fill upon patient request if the prescriptionis for a schedule II opioid drug., 155.3, cm, 08/21/23 14:39:00 EDT, Height Start Date: 08/21/23 Status: Ordered Quantity: 60.0 Unit: capsule Repeat number: 4 cranberry oral capsule 0 Refills, Maintenance, 12/02/19 2:34:00 PM EDT Start Date: 12/02/19 Status: Ordered Repeat number: 1 Flonase Allergy Relief 50 mcg/inh nasal spray 1 sprays = 50 mcg, Nares, Both, Daily, shake well before using, # 16 Gm, 1 Refills, Maintenance, 02/28/24 2:04:00 PM EST, [place], [facility], Partial fill upon patient request if the prescription is for a schedule II opioid drug., 155.3, cm, 02/28/24 13:30:00 EST, Height Start Date: 02/28/24 Stop Date: 03/27/24 Status: Ordered Quantity: 16.0 Unit: g Repeat number: 2 hydrochlorothiazide-losartan 12.5 mg-50 mg oral tablet 1 tablet, By Mouth, Daily, # 100 tablet, 1 Refills, Maintenance, 10/19/23 11:58:00 AM EDT, [facility], 100, 1 tablet By Mouth Daily, 155.3, cm, 08/21/23 14:39:00 EDT, Height Start Date: 10/19/23 Status: Ordered Quantity: 100.0 Unit: tablet Repeat number: 2 levothyroxine 0.05 mg oral tablet 1 tablet, By Mouth, Daily, # 90 tablet, 1 Refills, Maintenance, 03/14/24 2:27:00 PM EST, [facility], 155.3, cm, 02/28/24 13:30:00 EST, Height Start Date: 03/14/24 Status: Ordered Quantity: 90.0 Unit: tablet Repeat number: 1 metFORMIN 500 mg oral tablet 1 tablet, By Mouth, 2 times a day, # 60 tablet, 5 Refills, Maintenance, 11/21/23 4:44:00 PM EDT, [facility], 155.3, cm, 11/19/23 8:35:00 EDT, Height Start Date: 11/21/23 Status: Ordered Quantity: 60.0 Unit: tablet Repeat number: 1 Metoprolol Succinate ER 25 mg oral tablet, extended release 1 tablet, By Mouth, 2 times a day, # 90 tablet, 1 Refills, Maintenance, 03/05/23 9:24:00 AM EST, [place] [facility], 155.3, cm, 02/13/23 15:01:00 EDT, Height Start Date: 03/05/23 Status: Ordered Quantity: 90.0 Unit: tablet Repeat number: 1 montelukast 10 mg oral tablet 1, tablet, By Mouth, Daily, # 90 tablet, Refills 3, Maintenance, 12/17/23 11:55:00 AM EDT, Route to Pharmacy Electronically, [facility], 155.3, cm, 11/19/23 8:35:00 EDT, Height Start Date: 12/17/23 Status: Ordered Quantity: 90.0 Unit: tablet Repeat number: 1 niacin 50 mg oral tablet 1 tablet = 50 mg, By Mouth, Daily, # 30 tablet, 0 Refills, Maintenance, 12/02/19 2:33:00 PM EDT, Tablet Start Date: 12/02/19 Status: Ordered Quantity: 30.0 Unit: tablet Repeat number: 1 omeprazole 40 mg oral enteric coated capsule 1 capsule, By Mouth, Daily, # 90 capsule, 1 Refills, Maintenance, 03/21/24 7:06:00 AM EST, [facility], 155.3, cm, 02/28/24 13:30:00 EST, Height Start Date: 03/21/24 Status: Ordered Quantity: 90.0 Unit: capsule Repeat number: 1 one raised toilet seat for patient safety one raised toilet seat for patient safety, See Instructions, # 1 each, Refills 0, Tot. Refills 0, Maintenance, ICD-10 codes M16.11 M85.80, 01/24/21 1:01:00 PM EDT, Supply Start Date: 01/24/21 Status: Ordered Quantity: 1.0 Unit: each Repeat number: 1 pravastatin 80 mg oral tablet 1 tablet, By Mouth, Daily, # 90 tablet, 1 Refills, Maintenance, 02/14/24 11:07:00 AM EDT, [facility], 155.3, cm, 11/19/23 8:35:00 EDT, Height Start Date: 02/14/24 Status: Ordered Quantity: 90.0 Unit: tablet Repeat number: 1 Shower Chair to provide saftey for pt Shower Chair to provide saftey for pt, See Instructions, # 1 each, Refills 0, Tot. Refills 0, Maintenance, ICD-10 M16.11 M85.80, 01/24/21 1:04:00 PM EDT, Supply Start Date: 01/24/21 Status: Ordered Quantity: 1.0 Unit: each Repeat number: 1 thiamine 100 mg oral tablet 100 mg, 1, tablet, By Mouth, Daily, Refills 0, Maintenance, 12/02/19 2:34:00 PM EDT Start Date: 12/02/19 Status: Ordered Repeat number: 1 traZODone 150 mg oral tablet 1 tablet, By Mouth, Daily at bedtime, # 90 tablet, 1 Refills, Maintenance, 10/29/23 10:48:00 AM EDT, [facility], 155.3, cm, 08/21/23 14:39:00 EDT, Height Start Date: 10/29/23 Status: Ordered Quantity: 90.0 Unit: tablet Repeat number: 1 Valium 2 mg oral tablet 2 mg, 1, tablet, By Mouth, Once, 1 tablet, half an hour before procedure. Can repeat dose in few minutes if needed., # 2 tablet, Refills 0, Tot. Refills 0, Soft Stop, 05/02/21 3:28:00 PM EST, Route toPharmacy Electronically, [facility], Partial fill upon patient request if the prescription is for a schedule II opioid drug., 156, cm, 04/19/21 10:19:00 EST, Height, 78.1, kg, 09/27/20 11:27:00 EDT, Dry Weight Start Date: 05/02/21 Status: Ordered Quantity: 2.0 Unit: tablet Repeat number: 1 Problem List Condition Confirmation Course Effective Dates Status Health Status Informant Keene's esophagus Confirmed Active Ex-smoker Confirmed Active Acid reflux disease Confirmed Active Hepatitis C Confirmed Active Hypercholesterolemia Confirmed Active Hypertension Confirmed Active Hypothyroidism Confirmed Active Nephrolithiasis Confirmed 02/20/18 Active Knee osteoarthritis Confirmed Active Lumbar spondylosis Confirmed 08/07/13 Active Anxiety and depression Confirmed Active Obese class I Confirmed Active Osteoarthritis of right hip Confirmed Active Osteopenia Confirmed Active Prediabetes Confirmed Active Scoliosis of thoracic spine Confirmed Active SVT (supraventricular tachycardia) 1 Confirmed Active Cervical prolapse Confirmed Active 1Left hip Procedures Procedure Date Related Diagnosis Body Site Status Fiberoptic laryngoscope 1 Completed 1procedure done 11/11/14 normal findings Social History Social History Type Response Smoking Status Former smoker; Other : Quit smoking june 2015. 40 pack year history.; entered on: 03/17/16 Sex Female Sex Representation Female (finding) Cardiology * Event Display: Cardiology Office Note, Non-BH Authored Date: * Event Display: EKG Non BH Authored Date: EKG study * Event Display: EKG Authored Date: * Event Display: EKG Authored Date: Laboratory * Event Display: Non BH Lab Results Authored Date: * Event Display: Non BH Lab Results Authored Date: * Event Display: Non BH Lab Results Authored Date: Cardiology Consult note * Event Display: Consult Note Cardiology Authored Date: * Event Display: Consult Note Cardiology Authored Date: Radiology * Event Display: NM Nuclear Medicine, Non-BH Authored Date: * Event Display: Ultrasound Abdomen, Non-BH Authored Date: * Event Display: X-Ray Chest, Non- BH Authored Date: * Event Display: MRI Spine, Non- BH Authored Date: * Event Display: X-Ray Abdomen, Non- BH Authored Date: * Event Display: X-Ray Ankle/Foot, Non- BH Authored Date: * Event Display: X-Ray Ankle/Foot, Non- BH Authored Date: * Event Display: CT Scan Abdomen, Non- BH Authored Date: * Event Display: MRI Abdomen, Non- BH Authored Date: * Event Display: Ultrasound Abdomen, Non-BH Authored Date: * Event Display: NM Nuclear Medicine, Non-BH Authored Date: * Event Display: IR Special Procedures Authored Date: * Event Display: X-Ray Hip/Groin, Non- BH Authored Date: * Event Display: Bone Density Authored Date: * Event Display: X-Ray Hand/Wrist, Non- BH Authored Date: * Event Display: Radiology Result Scanned Authored Date: * Event Display: Radiology Result Scanned Authored Date: * Event Display: Radiology Result Scanned Authored Date: MR Abdomen * Event Display: MRI Abdomen Authored Date: US Abdomen * Event Display: Ultrasound Abdomen Authored Date: * Event Display: Ultrasound Abdomen Authored Date: * Event Display: Ultrasound Abdomen Authored Date: US Kidney * Event Display: Ultrasound Renal Authored Date: MG Breast Views * Event Display: MM Mammogram Authored Date: * Event Display: MM Mammogram Authored Date: * Event Display: MM Mammogram Authored Date: Patient Care team information Care Team Personnel Name: Angeles Kessler RN Position: [facility] SN RN Member Role: Primary Care Nurse Name: Dennis Bland MD Position: [facility] Physician - Primary Care Member Role: PCP Address: [address] [place] [id number] Telecom: Care Team Related Persons Name: CHELSEA SANFORD Insurance Providers Guarantor name: ANNIKACIRILO SANFORD Health Plan Information #: 1 Payer: NA Member Number: NA Policy Number: NA Group Number: NA
== END 2024-04-24 14:42 | disposition home or self-care (01) ==
PROVIDERS: PCP Internal Medicine; Visit Provider Nurse Practitioner Family
DX: R00.2 Palpitations (principal); I47.10 Supraventricular tachycardia, unspecified; R94.31 Abnormal electrocardiogram [ECG] [EKG]; R07.2 Precordial pain; Z65.9 Problem related to unspecified psychosocial circumstances
CPT/HCPCS: 93010; 99214; G2211

== ENCOUNTER → 2024-04-24 14:05 | Outpatient (BNVA) | payer MEDICARE, MEDICAID, SELFPAY | PROVIDERS: PCP Internal Medicine; Visit Provider Nurse Practitioner Family | DX: I47.10 Supraventricular tachycardia, unspecified (principal); R94.31 Abnormal electrocardiogram [ECG] [EKG]; R00.2 Palpitations; R07.2 Precordial pain; Z65.9 Problem related to unspecified psychosocial circumstances; R00.1 Bradycardia, unspecified | CPT/HCPCS: 93005; 99212 ==

== ENCOUNTER 2024-12-08 11:23 | Outpatient (REF) | payer MEDICARE, SELFPAY ==
--- NOTE | ~2024-12-08 | XR_ITS ---
EXAMINATION: XR PELVIS 1-2 VIEWS HISTORY: M25.559 - Pain in unspecified hip COMPARISON: Comparison is made with the prior examination dated 08/15/2018. FINDINGS: Two AP views of the pelvis are submitted. The patient is status post bilateral total hip arthroplasties. The orthopedic elements are in anatomic alignment. There is no radiographic evidence of loosening. There is no fracture or dislocation. There is severe degenerative disc disease of the spine. XR/XR pelvis 1-2V IMPRESSION: Status post bilateral total hip arthroplasty. Electronically signed by: Graeme Echavarria MD 12/08/2024 01:53 PM EDT
--- OUTSIDE RECORDS SUMMARY | 2024-12-08 12:43 | XMS_ITS ---
Author Organization [facility] Care Team Providers Care Fireworks Assembler Name Role Phone Ronald Larkin Unavailable Unavailable Tyler Thapa Unavailable Unavailable Allergies and adverse reactions Code CodeSystem Substance Reaction Severity StartDate Concern Status 7804 RXNORM oxyCODONE Unknown 09/08/2021 active 1191 RXNORM Aspirin Unknown 09/08/2021 active Care Team Name Role Address Phone Organization Dates Ronald Larkin PCP [address], [address], [place] (Office): [phone] (Fax): [phone] [facility] 09/08/2021 - 09/19/2021 Tyler Thapa [address], [address], [facility] (Office): [phone] (Fax): [phone] [facility] 09/08/2021 - 09/19/2021 Mental Status Section Date Assessment Total Score Description 09/19/2021 BIMS 15 cognitively int act CAM 0 No delirium ind icated PHQ-9 06 mild depression 09/15/2021 BIMS 15 cognitively int act CAM 0 No delirium ind icated PHQ-9 06 mild depression Problems Problem # Description Date of onset Resolved Date Code CodeSystem Concern Status 1 AFTERCARE FOLLOWING JOINT REPLACEMENT SURGERY [address] active 2 CHRONIC ATRIAL FIBRILLATION, UNSPECIFIED [address] active 3 CHRONIC VIRAL HEPATITIS C [address] active 4 ESSENTIAL (PRIMARY) HYPERTENSION [address] active 5 GASTRO-ESOPHAGEAL REFLUX DISEASE WITHOUT ESOPHAGITIS [address] active 6 HEADACHE, UNSPECIFIED [address] active 7 HYPERLIPIDEMIA, UNSPECIFIED [address] active 8 HYPOTHYROIDISM, UNSPECIFIED [address] active 9 MUSCLE WEAKNESS (GENERALIZED) [address] active 10 OSTEOARTHRITIS OF KNEE, UNSPECIFIED [address] active 11 PAIN IN RIGHT KNEE [address] active 12 PAIN IN RIGHT LEG [address] active 13 PERSONAL HISTORY OF TRANSIENT ISCHEMIC ATTACK (TIA), AND CEREBRAL INFARCTION WITHOUT RESIDUAL DEFICITS [address] active 14 PRESENCE OF RIGHT ARTIFICIAL KNEE JOINT [address] active 15 UNSPECIFIED ABNORMALITIES OF GAIT AND MOBILITY [address] active 16 UNSPECIFIED CIRRHOSIS OF LIVER [address] active Reason for Referral No Reasons for Referral Entered Social History Social History Observation Description Start Date End Date Code Code System Current Smoking Status Tobacco smoking consumption unknown 415352829 SNOMED CT Sex Assigned At Female 1955 [address]-1 [facility] Gender Identity Vital Signs Code Code System Vitals Name Values and Units Timing Information 8310-5 LOINC Body Temperature Value=97.6 Units= F 09/19/2021 75688-9 LOINC Pain Level Value=4.0 09/19/2021 42347-5 LOINC Weight Wmwgy=321.8 Units=Lbs 8462-4 LOINC Blood Pressure-Diastolic Value=78 Un its=mmHg 09/18/2021 8480-6 LOINC Blood Pressure-Systolic [place]=647 Un its=mmHg 09/18/2021 8867-4 [facility] Heart rate Value=84.0 Units=/min 9279-1 [facility] Respiratory Rate Value=17.0 Units=/m in 09/18/2021 94879-6 [facility] O2 % dC Oximetry Value=95.0 Units= % 09/18/2021 8302-2 [facility] Height Value=62.0 Units=Inches 09/14/2021
--- OUTSIDE RECORDS SUMMARY | 2024-12-08 12:43 | XMS_ITS ---
Author Organization [facility] Care Team Providers Care Fiber Optic Splicer Name Role Phone Tisha Echavarria Unavailable Unavailable Daria Harris Unavailable Unavailable David Monsalve Unavailable Unavailable Trudy Young Unavailable Unavailable Allergies and adverse reactions Code CodeSystem Substance Reaction Severity StartDate Concern Status Percogesic Anaphylaxis (co de- 43815541, SNOMED CT) Unknown 02/01/2018 active Care Team Name Role Address Phone Organization Dates David Monsalve PCP [address] [facility] [address], [place], [address], [facility] (Office): [facility] 02/01/2018 - 02/11/2018 Tisha Echavarria [address] [place], [address], [facility] (Office): [facility] 02/01/2018 - 02/11/2018 Daria Harris [address] [facility] [address] [place] [address], [address], [facility] (Office): [facility] 02/01/2018 - 02/11/2018 Trudy Young [address], [address], [facility] (Office): [facility] 02/01/2018 - 02/11/2018 Mental Status Section Date Assessment Total Score Description 02/11/2018 BIMS 15 cognitively int act CAM 0 No delirium ind icated PHQ-9 00 02/08/2018 BIMS 15 cognitively int act CAM 0 No delirium ind icated PHQ-9 00 Problems Problem # Description Date of onset Resolved Date Code CodeSystem Concern Status 1 CONSTIPATION, UNSPECIFIED 02/01/[address] active 2 ENCOUNTER FOR OTHER ORTHOPEDIC AFTERCARE 02/01/[address] active 3 ESSENTIAL (PRIMARY) HYPERTENSION 02/01/[address] active 4 GASTRO-ESOPHAGEAL REFLUX DISEASE WITHOUT ESOPHAGITIS 02/01/[address] active 5 HYPERLIPIDEMIA, UNSPECIFIED 02/01/[address] active 6 HYPOTHYROIDISM, UNSPECIFIED 02/01/[address] active 7 INSOMNIA, UNSPECIFIED 02/01/[address] active 8 OSTEOARTHRITIS OF HIP, UNSPECIFIED 02/01/[address] active 9 OTHER ABNORMALITIES OF GAIT AND MOBILITY 02/01/[address] active 10 OTHER LACK OF COORDINATION 02/01/[address] active 11 OTHER MALAISE 02/01/[address] act carol 12 PAIN IN RIGHT HIP 02/01/[address] active 13 PRESENCE OF RIGHT ARTIFICIAL ANKLE JOINT 02/01/[address] active 14 UNSPECIFIED OSTEOARTHRITIS, UNSPECIFIED SITE 02/01/[address] active 15 UNSPECIFIED VIRAL HEPATITIS C WITHOUT HEPATIC COMA 02/01/[address] active Reason for Referral No Reasons for Referral Entered Social History Social History Observation Description Start Date End Date Code Code System Current Smoking Status Tobacco smoking consumption unknown 700791520 SNOMED CT Sex Assigned At Female 1955 [address]-3 [facility] Gender Identity Vital Signs Code Code System Vitals Name Values and Units Timing Information 8302-2 LOINC Height Value=62.0 Units=Inches 02/06/2018 88596-3 LOINC Weight Tfzhm=545.0 Units=Lbs 9279-1 LOINC Respiratory Rate Value=18.0 Units=/m in 02/01/2018 8462-4 LOINC Blood Pressure-Diastolic Value=78 Un its=mmHg 02/01/2018 8480-6 LOINC Blood Pressure-Systolic Vmpvt=736 Un its=mmHg 02/01/2018 8310-5 [facility] Body Temperature Value=98.4 Units= F 02/01/2018 8867-4 [facility] Heart rate Value=86.0 Units=/min 03/2018 63592-8 [facility] O2 % BldC Oximetry Value=97.0 Units= % 02/01/2018
== END 2024-12-08 11:24 | disposition home or self-care (01) ==
LOC: HO.HOSX 11:23
PROVIDERS: Visit Provider Orthopaedic Surgery
DX: M51.16 Intervertebral disc disorders with radiculopathy, lumbar region (principal); M51.360 Other intervertebral disc degeneration, lumbar region with discogenic back pain only; M25.551 Pain in right hip; M25.552 Pain in left hip; Z96.643 Presence of artificial hip joint, bilateral
CPT/HCPCS: 72170; 99212

== ENCOUNTER 2024-12-08 13:26 | Outpatient (AMB) | payer MEDICARE, SELFPAY ==
--- NOTE | 2024-12-08 13:31 | MHC.OFFVIS ---
Vital Signs 12/08/24 13:36 Height 5 ft 2 in Weight 178 lb BMI 32.6 Intake Visit Reasons: New Prob - Bilateral Hip Pain Intake Note: Leann is a 68 year old female who presents today for a New Problem visit with complaints of Bilateral Hip Pain. Patient reports that her left hip is worse than the right. Her pain increases with prolonged standing and walking. Once her pain is triggered it is painful for the remained of the day. She is not taking medication as she does not like taking medication. She does have pain, numbness and tingling that radiates down her legs - this has been an ongoing issue that she had prior to her hip pain. Left RAZA 04/18/2017 Right RAZA 01/29/2018 Allergies oxycodone (From PERCOCET) Allergy (Intermediate, Verified 12/08/24 13:41) Itching aspirin (ASPIRIN) Adverse Reaction (Intermediate, Verified 12/08/24 13:41) STOMACH IRRITATION HPI HPI New Prob - Bilateral Hip Pain: Details: Leann is a 68 year old female who presents today for a New Problem visit with complaints of Bilateral Hip Pain. Patient reports that her left hip is worse than the right. Her pain increases with prolonged standing and walking. Once her pain is triggered it is painful for the remained of the day. She is not taking medication as she does not like taking medication. She does have pain, numbness and tingling that radiates down her legs - this has been an ongoing issue that she had prior to her hip pain. Hx of Right TKA [facility] Medical History Hepatitis C GERD (gastroesophageal reflux disease) TIA (transient ischemic attack) COVID-19 vaccine series completed Elevated cholesterol HTN (hypertension) Hypothyroid Surgical History History of total right knee replacement (09/06/21) History of knee replacement procedure of right knee (11/19/12) History of total left hip replacement (04/18/17) History of total right hip replacement (01/29/18) History of esophagogastroduodenoscopy (EGD) H/O colonoscopy History of prosthetic unicompartmental arthroplasty of right knee Family History Father Heart problem Social History Are you a primary home health care worker to a significant other at home: No Do you presently have visiting nurse or other home services: Yes (home health aid) Patient Tobacco Use Status: Former Tobacco user Tobacco use type: Cigarette Years Smoked: 35 Advance Directives Date on File: 04/18/16 service: No Current occupational status: retired Physical Exam Vital Signs: BMI result Body Mass Index 32.6 Extrem Other: Shuffling gait not consistent with hip pathology. No pain with hip range of motion. Pain localizes to the lumbosacral spinal region Results Reviewed Results Reviewed: I personally reviewed relevant radiographs. AP view of the pelvis are submitted. The patient is status post bilateral total hip arthroplasties. The orthopedic elements are in anatomic alignment. There is no radiographic evidence of loosening. There is no fracture or dislocation. There is severe degenerative disc disease of the spine. Assessment & Plan Assessment & Plan (1) Lumbar back pain with radiculopathy affecting lower extremity: Code(s): M54.16 - Radiculopathy, lumbar region Category: Medical Plan: Severe degenerative disease of the lumbar spine. Hips are not painful and radiographs are unchanged from prior. I recommend MRI of the lumbar spine Orders: Orders XR pelvis 1-2V Today M25.559 - Pain in unspecified hip MR lumbar spine wo con Today M54.16 - Radiculopathy, lumbar region Coding Level of Care Code Est Pt Level 3 (93042) Diagnoses Lumbar back pain with radiculopathy affecting lower extremity M54.16
[2024-12-08 13:36] VITALS: BMI 32.6
== END 2024-12-08 14:20 | disposition home or self-care (01) ==
LOC: HO.HOS 13:26
PROVIDERS: PCP Internal Medicine; Visit Provider Orthopaedic Surgery
DX: M54.16 Radiculopathy, lumbar region (principal)
CPT/HCPCS: 99213

== ENCOUNTER → 2024-12-08 13:28 | Outpatient (BNV) | payer MEDICARE, SELFPAY | PROVIDERS: Visit Provider Radiology Diagnostic Radiology | DX: M25.551 Pain in right hip (principal); M25.552 Pain in left hip | CPT/HCPCS: 72170 ==

== ENCOUNTER 2025-03-12 09:18 | Outpatient (REF) | payer MEDICARE, SELFPAY ==
--- NOTE | ~2025-03-12 | XR_ITS ---
EXAMINATION: XR KNEE, RIGHT CLINICAL INFORMATION: M17.11 - Unilateral primary osteoarthritis, right knee COMPARISON: 06/14/2023, 08/24/2022. TECHNIQUE: AP view bilateral knees standing, lateral and patellofemoral views right knee. FINDINGS: LEFT Knee: No fracture or dislocation. Mild medial compartment joint space narrowing. Mild medial compartment chondrocalcinosis. Normal soft tissues. RIGHT Knee: There has been a total right knee arthroplasty with patellar resurfacing. Femoral, and tibial components appear well seated, in anatomic alignment. No periprosthetic lucency or fracture. There is evidence of a prior MCL injury. No evidence of significant joint effusion. No soft tissue abnormalities aside from mild vascular calcifications. XR/XR knee RT 3V IMPRESSION: 1. Post right total knee arthroplasty without complication evident. Electronically signed by: Gallo Hale MD 03/12/2025 11:49 AM SYLVIA
== END 2025-03-12 09:19 | disposition home or self-care (01) ==
LOC: HO.HOSX 09:18
PROVIDERS: Visit Provider Physician Assistant
DX: Z96.651 Presence of right artificial knee joint (principal); M17.11 Unilateral primary osteoarthritis, right knee; Z96.643 Presence of artificial hip joint, bilateral
CPT/HCPCS: 73562; 99212

== ENCOUNTER → 2025-03-12 10:30 | Outpatient (BNV) | payer MEDICARE, SELFPAY | PROVIDERS: Visit Provider Radiology Diagnostic Radiology | DX: M17.11 Unilateral primary osteoarthritis, right knee (principal) | CPT/HCPCS: 73562 ==

== ENCOUNTER 2025-03-12 10:33 | Outpatient (AMB) | payer MEDICARE, SELFPAY ==
--- NOTE | 2025-03-12 10:57 | MHC.OFFVIS ---
Vital Signs 03/12/25 11:02 Height 5 ft 2 in Weight 178 lb BMI 32.6 Intake Visit Reasons: RT TKA 09/06/21 - she fell on 02/15/25 Intake Note: Leann is a 70 year old female who presents today for a follow up status post fall on 01/26/22. Hx of right TKA, performed by Dr. Kumar on 09/06/21. Patient reports bilateral knee pain after she fell on both of her knees. Her pain is located at the anterior aspect of knees. She also complains of bilateral shoulder pain as her right arm became twisted while preventing her from hitting her head. She mentions that she has sustained multiple falls. Allergies oxycodone (From PERCOCET) Allergy (Intermediate, Verified 03/12/25 11:02) Itching aspirin (ASPIRIN) Adverse Reaction (Intermediate, Verified 03/12/25 11:02) STOMACH IRRITATION Medication List - Last Reconciled 03/12/25 by Saloni Álvarez PA-C celecoxib 200 mg PO BID diazepam 2 mg PO DAILY levothyroxine 50 mcg PO DAILY losartan-hydrochlorothiazide 50-12.5 mg 1 tab PO DAILY metoprolol succinate ER 50 mg PO DAILY montelukast 10 mg PO DAILY omeprazole 40 mg PO DAILY pravastatin 80 mg PO DAILY trazodone 150 mg PO BEDTIME HPI HPI RT TKA 09/06/21 - she fell on 02/15/25: Details: 70-year-old female presents to the office today for pain in the right knee. She is status post right TKA on 09/06/[address] Kumar. She fell on 02/15/2025 landing on both knees. She complains of worsening pain in the right knee but also in the left. She denies instability. She states she does not keep up with her home exercises. 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) History of total right hip replacement (01/29/18) History of esophagogastroduodenoscopy (EGD) H/O colonoscopy History of prosthetic unicompartmental arthroplasty of right knee Family History Father Heart problem Social History Are you a primary home care and home health aides teacher to a significant other at home: No Do you presently have visiting nurse or other home services: Yes (home health aid) Patient Tobacco Use Status: Former Tobacco user Tobacco use type: Cigarette Years Smoked: 35 Advance Directives Date on File: 04/18/16 service: No Current occupational status: retired Review of Systems Const All systems reviewed & are unremarkable except as noted in HPI and below Physical Exam Vital Signs: BMI result Body Mass Index 32.6 Extrem Other: Right knee incision well healed. There is no erythema or joint effusion. She has range of motion 0-95. She can activate quad. Calf supple nontender neurovascularly intact. Results Reviewed Results Reviewed: X-rays of the right knee obtained in the office today and reviewed by me show intact orthopedic prosthesis without evidence of fracture dislocation or loosening. Assessment & Plan Assessment & Plan (1) Status post revision of total replacement of right knee: Code(s): Z96.651 - Presence of right artificial knee joint Category: Surgical Plan: Reassurance given to the patient her prosthesis appears intact without any hardware failure. I did strongly encourage her to work with physical therapy to work on strengthening conditioning. I did place an order and she will call to make an appointment. She will follow up as needed. Orders: Orders XR knee RT 3V Today M17.11 - Unilateral primary osteoarthritis, right knee PT Evaluation and Treatment Today Z96.651 - Presence of right artificial knee joint Coding Level of Care Code Complex visit Add On G2211 Diagnoses Status post revision of total replacement of right knee Z96.651
[2025-03-12 11:02] VITALS: BMI 32.6
== END 2025-03-12 11:31 | disposition home or self-care (01) ==
LOC: HO.HOS 10:33
PROVIDERS: Visit Provider Physician Assistant
DX: M17.11 Unilateral primary osteoarthritis, right knee (principal); Z96.651 Presence of right artificial knee joint
CPT/HCPCS: 99213; G2211